=== PATIENT | female | born 1940 | race Hispanic/Latino ===

== ENCOUNTER → 2017-09-11 | Day surgery (SDC) | payer MEDICARE ==
[2017-09-07 10:09] LABS: BASOPHILS # (AUTO) 0.1 (0.0-0.1); BASOPHILS % 1.1 % (0.0-1.0); EOSINOPHILS # (AUTO) 0.2 (0.0-0.4); EOSINOPHILS % 2.7 % (0.0-6.0); HEMATOCRIT 38.9 % (34.2-44.1); HEMOGLOBIN 12.3 g/dL (12.0-16.0); LYMPHOCYTES # (AUTO) 1.9 (1.0-3.2); LYMPHOCYTES % 28.3 % (18.0-39.1); MEAN CORPUSCULAR HEMOGLOBIN 28.2 pg (28-32); MEAN CORPUSCULAR HGB CONC 31.6 g/dL (31-35); MEAN CORPUSCULAR VOLUME 89.2 fL (81-99); MONOCYTES # (AUTO) 0.6 (0.2-0.8); MONOCYTES % 8.9 % (4.4-11.3); NEUTROPHILS # (AUTO) 3.9 (2.1-6.9); NEUTROPHILS % 58.7 % (38.7-80.0); PLATELET COUNT 292 x10e3/uL (140-360); RED BLOOD COUNT 4.36 x10e6/uL (3.6-5.1); RED CELL DISTRIBUTION WIDTH 14.1 % (11.7-14.4)
[~2017-09-11] MED LIST: CEFUROXIME500 MG PO; ECHINACEA380 MG PO; FENTANYL CITRATE/PF 100MCG/2 ML INJ ONE; GABAPENTIN300 MG PO; GLUCAGON FOR INJ 1 MG VIAL ONE; IBUPROFEN200 M2 PO; LIDOCAINE HCL 2% LOCAL INJ 5 ML SDV VIAL INJ ONE; LOSARTAN POTASS25 MG PO; METFORMIN HCL500 M3 PO; MIDAZOLAM HCL 2 MG/2 ML VIAL ONE; NAPROXEN SODIUM PO; OMEPRAZOLE40 MG PO; PROPOFOL IV EMULSION 10 MG/ML 50 ML VIAL ONE; Z.0.LEXAPRO10 MG PO; Z.0.SEROQUEL300 MG; Z.0.SIMVASTATIN20 MG PO; [UNRECOGNIZED DRUG - OTHER] PO
[2017-09-11 12:12] LABS: WBC,FECAL (FECAL LACTOFERRIN) NEGATIVE (NEGATIVE)
[2017-09-11 14:17] LABS: C DIFFICILE TOXIN A&B AMP PROB NEGATIVE (NEGATIVE)
--- NOTE | 2017-09-11 14:58 | Operative Report ---
DATE OF PROCEDURE: September 11, 2017 REFERRING PHYSICIAN: Dr. Yahaira Harley PROCEDURES PERFORMED 1. Esophagogastroduodenoscopy with esophageal dilatation and biopsies. 2. Colonoscopy with polypectomy and biopsies. INDICATIONS FOR EGD: Dysphagia to solids. INDICATIONS FOR COLONOSCOPY: Colorectal cancer screening, History of diarrhea and family history of colon cancer. MEDICATION: The patient was done under MAC. Please see anesthesiologist's note. PROCEDURE: With the patient in the left lateral decubitus position, the flexible fiberoptic Olympus gastroscope was introduced into the esophagus under direct visualization without any difficulty. There was some scattered whitish plaques noted in the esophagus. Those were brushed and sent to stain for kassy. There was a mild stricture noted at the GE junction that was dilated to size 52-[place] Rust. The scope was then advanced with ease into the stomach, and the mucosa overlying the antrum and the body revealed some patchy erythema and mild to moderate edema, and biopsies were obtained and sent to stain for H. pylori. The pylorus was of normal contour and shape. It was intubated with ease. The scope was advanced all the way to the 2nd portion of the duodenum. The scope was then withdrawn slowly. There was a large diverticulum noted in the proximal 2nd portion. The mucosa overlying the duodenal bulb appeared to be within normal limits. The scope was then withdrawn back into the stomach. Retroflexion of the mucosa overlying the fundus and the cardia appeared to be within normal limits. The scope was then straightened out. The stomach was decompressed. The scope was subsequently withdrawn. The patient tolerated the procedure well. IMPRESSION 1. Rule out Kassy esophagitis. 2. Esophageal stricture at gastroesophageal junction dilated to size 52-[place] Rust. 3. Gastritis, biopsied. Biopsies sent to stain for Helicobacter. pylori. 4. Duodenal diverticulum. PLAN: Follow up histology. Initiate Protonix 40 mg 1 p.o. q.a.m. and a.c. The patient was then turned around. After adequate lubrication of the anal canal, a flexible fiberoptic Olympus colonoscope was inserted into the rectum with ease and advanced all the way to the cecum. Mucosa overlying the cecum appeared to be within normal limits. The ileocecal valve was intubated. The scope was advanced into the terminal ileum. Biopsies were obtained. The scope was then withdrawn back into the colon. It was then withdrawn slowly. Mucosa overlying the ascending and transverse grossly appeared to be within normal limits. There was some mild patchy inflammatory changes noted in the left colon. Multiple random biopsies were obtained. One polyp was hot biopsied from the sigmoid colon. Similar inflammatory findings were noted in the rectum and biopsies were obtained. The scope was then retroflexed into the distal rectum and internal hemorrhoids were noted, none of which was actively bleeding. The scope was then straightened out. The rectosigmoid area, as well as the distal rectal area were decompressed. The scope was subsequently withdrawn after securing an adequate stool specimen that was sent for the appropriate stool studies. The patient tolerated the procedure well. IMPRESSION 1. Patchy mild left colitis. 2. Colon polyp, hot biopsied. 3. Proctitis, mild. 4. Internal hemorrhoids, none actively bleeding. PLAN: Follow up histology. Follow up stool studies. Initiate Bentyl 10 mg 1 p.o. t.i.d.. The patient will need a followup colonoscopy in 3 years. Job#: [id number] RI cc:YAHAIRA HARLEY MD
== END | disposition home or self-care (01) ==
LOC: OR 06:13
PROVIDERS: ATTEND Internal Medicine Gastroenterology
DX: Z12.11 Encounter for screening for malignant neoplasm of colon (principal); K63.5 Polyp of colon; K29.70 Gastritis, unspecified, without bleeding; K22.2 Esophageal obstruction; K51.50 Left sided colitis without complications; K57.10 Diverticulosis of small intestine without perforation or abscess without bleeding; K21.9 Gastro-esophageal reflux disease without esophagitis; K62.89 Other specified diseases of anus and rectum; K64.8 Other hemorrhoids; G47.33 Obstructive sleep apnea (adult) (pediatric); E11.9 Type 2 diabetes mellitus without complications; N28.1 Cyst of kidney, acquired; Z01.810 Encounter for preprocedural cardiovascular examination; Z01.812 Encounter for preprocedural laboratory examination; Z68.28 Body mass index [BMI] 28.0-28.9, adult; Z80.0 Family history of malignant neoplasm of digestive organs
CPT/HCPCS: 36415 ×2; 43239; 43450; 45380; 45384; 82948; 83630; 83993; 85025; 87045; 87177; 87328; 87493; 93005; J1610; J2001; J2250; 43245; 45378

== ENCOUNTER → 2018-02-10 | Outpatient (CLI) | payer MEDICARE ==
[~2018-02-10] MED LIST changes: -FENTANYL CITRATE/PF 100MCG/2 ML INJ ONE; -GLUCAGON FOR INJ 1 MG VIAL ONE; -LIDOCAINE HCL 2% LOCAL INJ 5 ML SDV VIAL INJ ONE; -MIDAZOLAM HCL 2 MG/2 ML VIAL ONE; -PROPOFOL IV EMULSION 10 MG/ML 50 ML VIAL ONE
--- NOTE | 2018-02-10 10:11 | Diagnostic Imaging Report ---
PROCEDURE:US RETROPERITONEAL ( KIDNEY ). COMPARISON:CT abdomen and pelvis without contrast 05/11/2013. INDICATIONS:Cyst Of Kidney TECHNIQUE: Smith-scale and color sonographic images of the bilateral kidneys and bladder where obtained in transverse and longitudinal planes. FINDINGS: RIGHT KIDNEY: 10.1 cm in length, cortical thickness 1.4 cm. Cysts: Interpolar-lower pole round anechoic structure with posterior acoustic enhancement measuring 2.2 x 2.1 x 2.6 cm, marginally increased in size relative to comparison CT, at which time the lesion measured 2 x 2 by 1.7 cm. Solid masses: None Stones: None Hydronephrosis: None Echogenicity: Normal renal cortical echogenicity. LEFT KIDNEY: 12.5 cm in length, cortical thickness 1.4 cm. Cysts: None Solid masses: None Stones: None Hydronephrosis: None Echogenicity: Normal renal cortical echogenicity. Bladder: Unremarkable. Right and left ureteral jets are identified. CONCLUSION: Simple right renal cyst now measuring 2.6 cm in maximum dimension, marginally increased in size relative to CT abdomen and pelvis 05/11/2013. Dictated by: Merlin Ordoñez M.D. on 02/10/2018 at 10:12 Electronically approved by: Merlin Ordoñez M.D. on 02/10/2018 at 10:12
== END ==
LOC: US 08:37
PROVIDERS: ATTEND Urology
DX: N28.1 Cyst of kidney, acquired (principal)
CPT/HCPCS: 76770

== ENCOUNTER → 2018-04-02 | Emergency (ER) | payer MEDICARE ==
[~2018-04-02] VITALS: Ht 160 cm; Wt 81.6 kg
[~2018-04-02] MED LIST changes: +BACLOFEN10 MG PO; +DICYCLOMINE HCL10 MG PO; +KETOROLAC TROMETHAMINE 60 MG/2 ML VIAL IM ONE; +ZOFRAN ODT4 MG PO
--- OUTSIDE RECORDS SUMMARY | 2018-04-02 09:07 | XMS REPORT ---
Author Author Admin, [place] Organization [facility] Address Unknown Phone Unavailable Allergies, Adverse Reactions, Alerts Allergy Name Reaction Description Start Date Severity Status Provider SULFA Critical Active Michael Waller MD Conditions or Problems Problem Name Problem Code Onset Date Status Entry Date Provider Comment Standard Description Annotate INSOMNIA DISORDER, RECURRENT Active Michael Waller MD Insomnia, unspecified ANXIETY DISORDER, OTHER SPECIFIED Active Michael Waller MD Other anxiety states OBESITY 278.00 Active Michael Waller MD Obesity, unspecified ANXIETY DISORDER NOS 300.00 Active Michael Waller MD Anxiety state, unspecified Medication List Medication Instructions Start Date Stop Date Generic Name NDC Status Provider Patient Instruction NYSTATIN 899837 UNIT/ML MOUTH/THROAT SUSPENSION NYSTATIN 81298282966 Active Michael Waller MD Active PANTOPRAZOLE SODIUM 40 MG ORAL TABLET DELAYED RELEASE PANTOPRAZOLE SODIUM 64906616979 Active Michael Waller MD Active BELSOMRA 5 MG ORAL TABLET Take 1 tab By Mouth take at bedtime As Needed insomnia SUVOREXANT 76586573120 Active Michael Waller MD Active LEXAPRO 20 MG ORAL TABLET Take 1 tab By Mouth take at bedtime ESCITALOPRAM OXALATE 73637716690 Active Michael Waller MD Active VALIUM 2 MG ORAL TABLET Take 1 tab By Mouth q8 hours As Needed anxiety 01/25 VALIUM 2 MG ORAL TABLET 809821 DIAZEPAM Inactive AMBIEN 5 MG ORAL TABLET Take 1 tab By Mouth take at bedtime ZOLPIDEM TARTRATE 50274851423 No Longer Active Michael Waller MD Active VALIUM 2 MG ORAL TABLET Take 1 tab By Mouth q8 hours As Needed anxiety 01/25 DIAZEPAM 38001357361 No Longer Active Michael Waller MD Active Vital Signs Date Name Value Unit Range Description blood pressure, diastolic 69 mm[Hg] BP bosch blood pressure, systolic 119 mm[Hg] BP sys height E&M 63 [in_us] Bdy height pulse rate E&M 83 /min Heart rate weight E&M 179.40 [lb_av] Weight Measured blood pressure, diastolic 73 mm[Hg] BP bosch blood pressure, systolic 112 mm[Hg] BP sys height E&M 63 [in_us] Bdy height pulse rate E&M 78 /min Heart rate weight E&M 179 [lb_av] Weight Measured blood pressure, diastolic 68 mm[Hg] BP bosch blood pressure, systolic 106 mm[Hg] BP sys height E&M 63 [in_us] Bdy height pulse rate E&M 83 /min Heart rate weight E&M 176.40 [lb_av] Weight Measured blood pressure, diastolic 78 mm[Hg] BP bosch blood pressure, systolic 131 mm[Hg] BP sys height E&M 63 [in_us] Bdy height pulse rate E&M 74 /min Heart rate weight E&M 177.60 [lb_av] Weight Measured blood pressure, diastolic 71 mm[Hg] BP bosch blood pressure, systolic 111 mm[Hg] BP sys height E&M 63 [in_us] Bdy height pulse rate E&M 90 /min Heart rate weight E&M 172 [lb_av] Weight Measured blood pressure, diastolic 67 mm[Hg] BP bosch blood pressure, systolic 105 mm[Hg] BP sys height E&M 63 [in_us] Bdy height pulse rate E&M 69 /min Heart rate weight E&M 169 [lb_av] Weight Measured blood pressure, diastolic 73 mm[Hg] BP bosch blood pressure, systolic 110 mm[Hg] BP sys height E&M 63 [in_us] Bdy height pulse rate E&M 68 /min Heart rate weight E&M 163.80 [lb_av] Weight Measured blood pressure, diastolic 68 mm[Hg] BP bosch blood pressure, systolic 113 mm[Hg] BP sys height E&M 63 [in_us] Bdy height pulse rate E&M 81 /min Heart rate weight E&M 163 [lb_av] Weight Measured Encounters Date Encounter Provider Code Facility 10:08:05 CDT Est Patient Exp Problem - 85982 Michael Waller MD CPT -69537 [facility] 10:04:40 CDT Est Patient Detailed - 48047 Michael Waller MD CPT- 79717 [facility] 09:50:03 BRAKE ASSEMBLER Est Patient Exp Problem - 21464 Michael Waller MD CPT -85883 [facility] 10:03:30 BRAKE ASSEMBLER Est Patient Exp Problem - 76098 Michael Waller MD CPT -59176 [facility] 10:29:51 CDT Est Patient Exp Problem - 78590 Michael Waller MD CPT -48650 [facility] 11:01:15 CDT Est Patient Detailed - 63324 Michael Waller MD CPT- 95602 [facility] 10:38:17 CDT Est Patient Exp Problem - 70486 Michael Waller MD CPT -73524 [facility] 10:39:07 CDT Est Patient Exp Problem - 13000 Michael Waller MD CPT -47223 [facility] 11:05:18 CDT Est Patient Exp Problem - 02256 Michael Waller MD CPT -52471 [facility] 14:37:52 CDT Est Patient Exp Problem - 37265 Michael Waller MD CPT -53348 [facility] 09:35:06 CDT Est Patient Exp Problem - 35009 Michael Waller MD CPT -04918 [facility] 10:39:18 CDT Est Patient Exp Problem - 00112 Michael Waller MD CPT -97849 [facility] 10:16:05 CDT Est Patient Exp Problem - 58327 Michael Waller MD CPT -58887 [facility] 10:35:52 BRAKE ASSEMBLER Est Patient Exp Problem - 61165 Michael Waller MD CPT -48041 [facility] 12:31:20 CDT Est Patient Exp Problem - 22727 Michael Waller MD CPT -92360 [facility] 12:14:57 CDT Est Patient Exp Problem - 24830 Michael Waller MD CPT -94348 [facility] 09:35:08 CDT Est Patient Exp Problem - 21906 Michael Waller MD CPT -04585 [facility] 11:03:56 BRAKE ASSEMBLER Est Patient Exp Problem - 30824 Michael Waller MD CPT -01210 [facility] Procedures Code Procedure Name Date Entry Date Standard Description CPT-68522 Diagnostic evaluation with [facility] - 83164 13:47:35 BRAKE ASSEMBLER
--- OUTSIDE RECORDS SUMMARY | 2018-04-02 09:07 | XMS REPORT ---
Author [facility] Address Unknown Phone Unavailable Care Team Providers Care Scrap Stripper Hand Name Role Phone ALEIDA SETH Unavailable Unavailable MORE MELÉNDEZ Unavailable Unavailable JUDD BARRETT Unavailable Unavailable Problems This patient has no known problems. Allergies, Adverse Reactions, Alerts This patient has no known allergies or adverse reactions. Medications This patient has no known medications. Results Test Description Test Time Test Comments Text Results Atomic Results Result Comments US RENAL RETROPERITONEAL COMP [place] [address] Patient Name: DUSTIN ALONSO MR #: [id number] : 1940 Age/Sex: 78/F Req #: [id number] Adm Physician: Ordered by: ALEIDA SETH MD Report #: [id number] Location: US Room/Bed: Procedure: [id number] US/US RENAL RETROPERITONEAL COMP Exam Date: Exam Time: REPORT STATUS: Signed PROCEDURE: US RETROPERITONEAL ( KIDNEY ). COMPARISON: CT abdomen and pelvis without contrast 05/11/2013. INDICATIONS: Cyst Of Kidney TECHNIQUE: Smith-scale and color sonographic images of the bilateral kidneys and bladder where obtained in transverse and longitudinal planes. FINDINGS: RIGHT KIDNEY : 10.1 cm in length, cortical thickness 1.4 cm. Cysts: Interpolar-lower pole round anechoic structure with posterior acoustic enhancement measuring 2.2 x 2.1 x 2.6 cm, marginally increased in size relative to comparison CT, at which time the lesion measured 2 x 2 by 1.7 cm. Solid masses: None Stones : None Hydronephrosis: None Echogenicity: Normal renal cortical echogenicity. LEFT KIDNEY: 12.5 cm in length, cortical thickness 1.4 cm. Cysts: None Solid masses: None Stones: None Hydronephrosis: None Echogenicity: Normal renal cortical echogenicity. Bladder: Unremarkable. Right and left ureteral jets are identified. CONCLUSION: Simple right renal cyst now measuring 2.6 cm in maximum dimension, marginally increased in size relative to CT abdomen and pelvis 05/11/2013. Dictated by: Vicenta Amado M.D. on 02/10/2018 at 10:12 Electronically approved by: Vicenta Amado M.D. on 02/10/2018 at 10:12 Dictated By : VICENTA AMADO MD 1012 Transcribed By: CYTNHIA on 02/10/18 1012 COPY TO: ALEIDA SETH MD MODIFIED BA. SWALLOW [place] [address] Patient Name: DUSTIN ALONSO MR #: [id number] : 1940 Age/Sex: 77/F Req #: [id number] Adm Physician: Ordered by: MORE MELÉNDEZ MD Report #: [id number] Location: DX Room/Bed: Procedure: [id number] DX/MODIFIED BA. SWALLOW Exam Date: 10/08/17 Exam Time: 1005 REPORT STATUS: Signed Modified Barium Swallow, October 08, 2017 Clinical history: Difficulty swallowing Comparison: None Technique : A modified barium swallow was performed in conjunction with speech pathology. Various viscosities of barium and barium-coated food items were administered under fluoroscopic observation. Fluoroscopy time: 2.6 min Cumulative air kerma: 16.10 mGy Findings: No evidence of laryngeal penetration or aspiration. Recurrent premature spillage into the vallecula. Small volume of residue throughout the hypopharynx. Impression: No evidence of penetration or aspiration. This report was generated with voice-recognition technology. Errors in cranberry bog supervisor can occur. Please interpret accordingly and contact a radiologist if there are any questions regarding the report. Signed by: Dr. Nikki Gomez M.D. on 10/08/2017 11: 26 AM Dictated By: NIKKI GOMEZ MD 112 Transcribed By: FAYE on 10/08/17 112 COPY TO: MORE MELÉNDEZ MD CHEST SINGLE (NOT PORTABLE) [place] [address] Patient Name: DUSTIN ALONSO MR #: [id number] : 1940 Age/Sex: 77/F Req #: [id number] Adm Physician: Ordered by: ALLA CHAO Report #: [id number] Location: ER Room/Bed: _ Procedure: [id number] DX/CHEST SINGLE (NOT PORTABLE) Exam Date: 09/28/17 Exam Time: 1710 REPORT STATUS: Signed PROCEDURE: A single AP view of the chest. COMPARISON: Chest radiograph and chest CT 01/23/2017. INDICATIONS: BODY ACHES, WEAK, SHORTNESS OF BREATH FINDINGS: Lines/tubes: None. Lungs: The lungs are well inflated and clear. There is no evidence of pneumonia or pulmonary edema. Pleura: There is no pleural effusion or pneumothorax. Heart and mediastinum: The heart and the mediastinum are unremarkable. Bones: No acute bony abnormality. IMPRESSION: No acute cardiopulmonary disease. Dictated by: Bird Swanson M.D. on 09/28/2017 at 17:32 Electronically approved by: Bird Swanson M.D. on 09/28/2017 at 17:32 Dictated By: BIRD SWANSON MD 173 Transcribed By: CYNTHIA on 09/28/17 1732 COPY TO: ALLA CHAO
[2018-04-02 09:46] LABS: BILIRUBIN,URINE NEGATIVE (NEGATIVE); CLARITY,URINE CLOUDY (CLEAR); COLOR,URINE YELLOW (YELLOW); KETONES,URINE NEGATIVE (NEGATIVE); LEUKOCYTE ESTERASE ,URINE 1+ (NEGATIVE); NITRITE,URINE NEGATIVE (NEGATIVE); PROTEIN,URINE DIPSTICK 2+ (NEGATIVE); URINE UROBILINOGEN 0.2 mg/dL (0.2 - 1)
[2018-04-02 09:59] LABS: BACTERIA,URINE MODERATE /HPF; EPITHELIAL CELLS,URINE FEW /LPF; RBC,URINE >50 /HPF (0-5)
[2018-04-02 10:30] LABS: BASOPHILS # (AUTO) 0.1 (0.0-0.1); BASOPHILS % 0.8 % (0.0-1.0); EOSINOPHILS # (AUTO) 0.3 (0.0-0.4); EOSINOPHILS % 3.4 % (0.0-6.0); HEMATOCRIT 37.9 % (34.2-44.1); HEMOGLOBIN 12.3 g/dL (12.0-16.0); LYMPHOCYTES # (AUTO) 1.3 (1.0-3.2); LYMPHOCYTES % 17.1 % (18.0-39.1); MEAN CORPUSCULAR HEMOGLOBIN 28.9 pg (28-32); MEAN CORPUSCULAR HGB CONC 32.5 g/dL (31-35); MEAN CORPUSCULAR VOLUME 89.2 fL (81-99); MONOCYTES # (AUTO) 0.6 (0.2-0.8); MONOCYTES % 7.6 % (4.4-11.3); NEUTROPHILS # (AUTO) 5.4 (2.1-6.9); NEUTROPHILS % 70.8 % (38.7-80.0); PLATELET COUNT 255 x10e3/uL (140-360); RED BLOOD COUNT 4.25 x10e6/uL (3.6-5.1); RED CELL DISTRIBUTION WIDTH 14.1 % (11.7-14.4)
[2018-04-02 10:44] LABS: ALANINE AMINOTRANSFERASE 16 IU/L (0-55); ALBUMIN 3.6 g/dL (3.5-5.0); ALBUMIN/GLOBULIN RATIO 1.1 (0.8-2.0); ALKALINE PHOSPHATASE 84 IU/L (40-150); ANION GAP 12.3 mmol/L (8-16); BLOOD UREA NITROGEN 14 mg/dL (7-26); BUN/CREATININE RATIO 19 (6-25); CALCIUM 9.1 mg/dL (8.4-10.2); CARBON DIOXIDE 27 mmol/L (22-29); CHLORIDE 104 mmol/L (98-107); CREATININE, SERUM 0.74 mg/dL (0.57-1.11); EST GLOMERULAR FILTRATION RATE > 60 ML/MIN (60-); GLUCOSE 129 mg/dL (74-118); POTASSIUM 4.3 mmol/L (3.5-5.1); SODIUM 139 mmol/L (136-145)
--- NOTE | 2018-04-02 11:09 | Diagnostic Imaging Report ---
EXAM: CT Abdomen and Pelvis WITHOUT contrast INDICATION: \S\kidney stone protocol COMPARISON: Abdominal CT 05/11/2013 TECHNIQUE: Abdomen and pelvis were scanned utilizing a multidetector helical scanner from the lung base to the pubic symphysis without administration of IV contrast. Absence of intravenous contrast decreases sensitivity for detection of focal lesions and vascular pathology. Coronal and sagittal reformations were obtained. Routine protocol was performed. IV CONTRAST: None ORAL CONTRAST: Water COMPLICATIONS: None RADIATION DOSE: Total DLP: 509.3 mGy*cm Estimated effective dose: (DLP x 0.015 x size factor) mSv CTDIvol has been reviewed. It is below the limits set by the Radiation Protocol Committee (RPC). FINDINGS: LINES and TUBES: None. LOWER THORAX: Unremarkable HEPATOBILIARY: No focal hepatic lesions. No biliary ductal dilation. GALLBLADDER: No radio-opaque stones or sludge. No wall thickening. SPLEEN: No splenomegaly. PANCREAS: No focal masses or ductal dilatation. ADRENALS: No adrenal nodules KIDNEYS/URETERS: No hydronephrosis. Fluid attenuating 2 cm lesion in the right kidney representing a cyst. No stones. GI TRACT: No abnormal distention, wall thickening, or evidence of bowel obstruction. Duodenal diverticulum along the second segment measuring approximately 2.9 cm. Appendix is not clearly identified. There is however no fat stranding or adenopathy in the right lower quadrant to suggest appendicitis. Diverticula of the sigmoid colon without evidence of diverticulitis. PELVIC ORGANS/BLADDER: Hysterectomy. No adnexal masses. Multiple phleboliths in the pelvis. LYMPH NODES: No lymphadenopathy. VESSELS: Atherosclerotic calcifications of the abdominal aorta and iliac arteries. PERITONEUM / RETROPERITONEUM: Trace free fluid in the pelvis. No free air. BONES: Degenerative changes of the spine, including severe facet hypertrophy at L4-L5 and L5-S1. SOFT TISSUES: Fat-containing umbilical hernia measuring approximately 2.1 x 2.5 cm without stranding to suggest strangulation. IMPRESSION: No urolithiasis. No noncontrast CT findings to explain abdominal pain. Trace free fluid in the pelvis, unexpected in a postmenopausal patient but otherwise nonspecific. Signed by: DR. Bird Fuentes MD on 04/02/2018 11:05 AM
[2018-04-02 11:43] VITALS: BP 111/76
== END | disposition home or self-care (01) ==
LOC: ER 09:03
DX: R30.0 Dysuria (principal); M54.5 Low back pain; N30.91 Cystitis, unspecified with hematuria; K57.31 Diverticulosis of large intestine without perforation or abscess with bleeding; E11.9 Type 2 diabetes mellitus without complications; E78.00 Pure hypercholesterolemia, unspecified; G62.9 Polyneuropathy, unspecified; F32.9 Major depressive disorder, single episode, unspecified
CPT/HCPCS: 99284; J1885

== ENCOUNTER → 2018-06-01 | Outpatient (CLI) | payer MEDICARE ==
[~2018-06-01] MED LIST changes: -KETOROLAC TROMETHAMINE 60 MG/2 ML VIAL IM ONE
[2018-06-01 11:58] LABS: BASOPHILS % 0.6 % (0.0-1.0); EOSINOPHILS # (AUTO) 0.2 (0.0-0.4); EOSINOPHILS % 2.7 % (0.0-6.0); HEMATOCRIT 40.1 % (34.2-44.1); HEMOGLOBIN 12.9 g/dL (12.0-16.0); LYMPHOCYTES # (AUTO) 1.9 (1.0-3.2); LYMPHOCYTES % 29.4 % (18.0-39.1); MEAN CORPUSCULAR HEMOGLOBIN 28.7 pg (28-32); MEAN CORPUSCULAR HGB CONC 32.2 g/dL (31-35); MEAN CORPUSCULAR VOLUME 89.3 fL (81-99); MONOCYTES # (AUTO) 0.6 (0.2-0.8); MONOCYTES % 8.8 % (4.4-11.3); NEUTROPHILS # (AUTO) 3.7 (2.1-6.9); NEUTROPHILS % 58.2 % (38.7-80.0); PLATELET COUNT 284 x10e3/uL (140-360); RED BLOOD COUNT 4.49 x10e6/uL (3.6-5.1); RED CELL DISTRIBUTION WIDTH 13.9 % (11.7-14.4)
== END ==
LOC: LAB 11:01
PROVIDERS: ATTEND Internal Medicine Gastroenterology
DX: K92.1 Melena (principal)
CPT/HCPCS: 36415; 85025

== ENCOUNTER → 2018-07-06 | Day surgery (SDC) | payer MEDICARE ==
[2018-07-05 12:19] LABS: BASOPHILS # (AUTO) 0.1 (0.0-0.1); BASOPHILS % 1.2 % (0.0-1.0); EOSINOPHILS # (AUTO) 0.2 (0.0-0.4); EOSINOPHILS % 3.4 % (0.0-6.0); HEMOGLOBIN 12.1 g/dL (12.0-16.0); LYMPHOCYTES # (AUTO) 2.4 (1.0-3.2); LYMPHOCYTES % 35.5 % (18.0-39.1); MEAN CORPUSCULAR HEMOGLOBIN 28.9 pg (28-32); MEAN CORPUSCULAR HGB CONC 31.8 g/dL (31-35); MEAN CORPUSCULAR VOLUME 90.9 fL (81-99); MONOCYTES # (AUTO) 0.7 (0.2-0.8); MONOCYTES % 10.9 % (4.4-11.3); NEUTROPHILS # (AUTO) 3.3 (2.1-6.9); NEUTROPHILS % 48.9 % (38.7-80.0); PLATELET COUNT 284 x10e3/uL (140-360); RED BLOOD COUNT 4.18 x10e6/uL (3.6-5.1); RED CELL DISTRIBUTION WIDTH 13.9 % (11.7-14.4)
[~2018-07-06] MED LIST changes: +PANTOPRAZOLE SO40 MG PO; +PROPOFOL IV EMULSION 10 MG/ML 50 ML VIAL ONE; +SUCRALFATE1 GM PO; +[UNRECOGNIZED DRUG - OTHER] PO
[2018-07-06 16:25] VITALS: BP 155/87
== END | disposition home or self-care (01) ==
LOC: OR 13:18
PROVIDERS: ATTEND Internal Medicine Gastroenterology
DX: K29.70 Gastritis, unspecified, without bleeding (principal); K31.7 Polyp of stomach and duodenum; K22.2 Esophageal obstruction; K20.9 Esophagitis, unspecified; K57.10 Diverticulosis of small intestine without perforation or abscess without bleeding; K21.9 Gastro-esophageal reflux disease without esophagitis; K44.9 Diaphragmatic hernia without obstruction or gangrene; G47.33 Obstructive sleep apnea (adult) (pediatric); E11.22 Type 2 diabetes mellitus with diabetic chronic kidney disease; I12.9 Hypertensive chronic kidney disease with stage 1 through stage 4 chronic kidney disease, or unspecified chronic kidney disease; N18.9 Chronic kidney disease, unspecified; Z88.6 Allergy status to analgesic agent; Z88.2 Allergy status to sulfonamides; Z88.8 Allergy status to other drugs, medicaments and biological substances; Z01.810 Encounter for preprocedural cardiovascular examination; Z01.812 Encounter for preprocedural laboratory examination; Z79.84 Long term (current) use of oral hypoglycemic drugs
CPT/HCPCS: 36415; 43239; 43450; 82948; 85025; 88305; 88312; 93005

== ENCOUNTER → 2019-02-27 | Outpatient (CLI) | payer MEDICARE ==
[~2019-02-27] MED LIST changes: -PROPOFOL IV EMULSION 10 MG/ML 50 ML VIAL ONE
--- NOTE | 2019-02-27 10:36 | Diagnostic Imaging Report ---
Renal ultrasound. History: Cyst of kidney Comparison: CT scan 04/02/2018. Findings: Transverse and longitudinal imaging of the kidneys and bladder. The kidneys are normal in echogenicity and size. 2.4 x 1.7 x 2.4 cm cyst in the mid medial right kidney. Possible prominent right renal pelvis. The right kidney measures 11.4 x 3.7 x 5.2 cm in length and the left kidney measures 9.8 x 4.0 x 4.8 cm in length. The right renal cortex measures 1.3 cm. The left renal cortex measures 1.3 cm. No bladder abnormalities identified. Bilateral ureteral jets are seen in the urinary bladder. Impression: 2.4 x 1.7 x 2.4 cm simple appearing cyst in the mid medial right kidney. Possible prominent right renal pelvis. Signed by: Dr. Regis Bolton M.D. on 02/27/2019 10:32 AM
== END ==
LOC: US 08:31
PROVIDERS: ATTEND Urology
DX: N28.1 Cyst of kidney, acquired (principal)
CPT/HCPCS: 76770

== ENCOUNTER 2019-07-01 07:30 | Emergency (ER) | payer MEDICARE ==
[~2019-07-01] VITALS: Ht 160 cm; Wt 81.6 kg
--- OUTSIDE RECORDS SUMMARY | 2019-07-01 07:34 | XMS REPORT ---
Author Author Admin, [place] Organization [facility] Address [address] [place] [address] Phone Allergies, Adverse Reactions, Alerts Allergy Name Reaction [...] Name NDC Status Provider Patient Instruction NYSTATIN 521641 UNIT/ML MOUTH/THROAT SUSPENSION NYSTATIN 57031845049 Active Michael Waller MD Active PANTOPRAZOLE SODIUM 40 MG ORAL TABLET DELAYED RELEASE PANTOPRAZOLE SODIUM 01034435106 Active Michael Waller MD Active BELSOMRA 5 MG ORAL TABLET Take 1 tab By Mouth take at bedtime As Needed insomnia SUVOREXANT 08602243884 Active Daphney Cleveland MD Active LEXAPRO 20 MG ORAL TABLET Take 1 tab By Mouth take at bedtime ESCITALOPRAM OXALATE 86307977684 Active Michael Waller MD Active VALIUM 2 MG ORAL TABLET Take 1 tab By Mouth q8 hours As Needed anxiety VALIUM 2 MG ORAL TABLET 970350 DIAZEPAM Inactive AMBIEN 5 MG ORAL TABLET Take 1 tab By Mouth take at bedtime ZOLPIDEM TARTRATE 40886511309 No Longer Active Michael Waller MD Active VALIUM 2 MG ORAL TABLET Take 1 tab By Mouth q8 hours As Needed anxiety DIAZEPAM 10709954338 No Longer Active Michael Waller MD Active Vital Signs Date Name Value Unit Range Description blood pressure, diastolic 75 mm[Hg] BP bosch blood pressure, systolic 145 mm[Hg] BP sys height E&M 63 [in_us] Bdy height pulse rate E&M 92 /min Heart rate blood pressure, diastolic 63 mm[Hg] BP bosch blood pressure, systolic 110 mm[Hg] BP sys height E&M 63 [in_us] Bdy height pulse rate E&M 73 /min Heart rate weight E&M 183 [lb_av] Weight Measured blood pressure, diastolic 73 mm[Hg] BP bosch blood pressure, systolic 138 mm[Hg] BP sys height E&M 63 [in_us] Bdy height pulse rate E&M 83 /min Heart rate weight E&M 183.38 [lb_av] Weight Measured blood pressure, diastolic 76 mm[Hg] BP bosch blood pressure, systolic 135 mm[Hg] BP sys height E&M 63 [in_us] Bdy height pulse rate E&M 73 /min Heart rate weight E&M 182.13 [lb_av] Weight Measured blood pressure, diastolic 72 mm[Hg] BP bosch blood pressure, systolic 114 mm[Hg] BP sys height E&M 63 [in_us] Bdy height pulse rate E&M 80 /min Heart rate weight E&M 181.40 [lb_av] Weight Measured Encounters Date Encounter Provider Code Facility 09:29:28 CDT Est Patient Exp Problem - 16153 Michael Waller MD CPT-70870 [facility] 09:30:44 CDT Est Patient Exp Problem - 66018 Michael Waller MD CPT-01612 [facility] 09:25:23 UNSCRAMBLER Est Patient Exp Problem - 00802 Michael Waller MD CPT-76235 [facility] 10:32:36 UNSCRAMBLER Est Patient Exp Problem - 55917 Michael Waller MD CPT-80060 [facility] 11:54:15 CDT Est Patient Exp Problem - 75401 Michael Waller MD CPT-55591 [facility] 13:44:55 CDT Est Patient Exp Problem - 92467 Michael Waller MD CPT-68220 [facility] 10:08:05 CDT Est Patient Exp Problem - 78848 Michael Waller MD CPT-83080 [facility] 10:04:40 CDT Est Patient Detailed - 85761 Michael Waller MD CPT-83098 [facility] 09:50:03 UNSCRAMBLER Est Patient Exp Problem - 61722 Michael Waller MD CPT-76921 [facility] 10:03:30 UNSCRAMBLER Est Patient Exp Problem - 98065 Michael Waller MD CPT-84786 [facility] 10:29:51 CDT Est Patient Exp Problem - 68206 Michael Waller MD CPT-53731 [facility] 11:01:15 CDT Est Patient Detailed - 68092 Michael Waller MD CPT-42257 [facility] 10:38:17 CDT Est Patient Exp Problem - 61673 Michael Waller MD CPT-73530 [facility] 10:39:07 CDT Est Patient Exp Problem - 60632 Michael Waller MD CPT-44103 [facility] 11:05:18 CDT Est Patient Exp Problem - 11373 Michael Waller MD CPT-10095 [facility] 14:37:52 CDT Est Patient Exp Problem - 62288 Michael Waller MD CPT-35969 [facility] 09:35:06 CDT Est Patient Exp Problem - 73203 Michael Waller MD CPT-40667 [facility] 10:39:18 CDT Est Patient Exp Problem - 42018 Michael Waller MD CPT-78696 [facility] 10:16:05 CDT Est Patient Exp Problem - 49693 Michael Waller MD CPT-11363 [facility] 10:35:52 UNSCRAMBLER Est Patient Exp Problem - 73513 Michael Waller MD CPT-28308 [facility] 12:31:20 CDT Est Patient Exp Problem - 86948 Michael Waller MD CPT-80517 [facility] 12:14:57 CDT Est Patient Exp Problem - 92695 Michael Waller MD CPT-42696 [facility] 09:35:08 CDT Est Patient Exp Problem - 43165 Michael Waller MD CPT-19671 [facility] 11:03:56 UNSCRAMBLER Est Patient Exp Problem - 00381 Michael Waller MD CPT-78200 [facility] Procedures Code Procedure Name Date Entry Date Standard Description CPT-01133 Diagnostic evaluation with medical - 84619 13:47:35 UNSCRAMBLER
--- OUTSIDE RECORDS SUMMARY | 2019-07-01 07:34 | XMS REPORT | Encounter Summary ---
Author Organization Unknown Address [address] [place] [address] Phone [phone] Reason for Visit Medical Complaint Instructions 1. Influenza-like symptoms benzonatate 200 mg capsule rapid flu (A+B) 2. Type 2 diabetes mellitus learning about type 2 diabetes 3. Hypertensive disorder elevated blood pressure: care instructions 4. Hyperlipidemia high cholesterol: care instructions 5. Body mass index 30+ - obesity Discussion Note Pt is in NAD; Verbalizes understanding of all instructions with no questions at this time. Plan of Care Patient Instructions Take tylenol over the counter for pain/headache/fever as per pacakge insert. Take benzonatate for cough as directed. Take fluticasone as needed for congestion. [place] one spray in each nostril twice a day. Take a warm, steamy shower, blow your nose thereafter, and spray in each nostril. Tilt your head up for about 10 seconds and breath through your mouth. Do not sniff or snort the medication in or else the medication will go to your throat and not be absorbed appropriately. Take levocetirizine for allergy like symptoms like runny nose, sneezing and watery eyes. Take medications as prescribed and follow up with a PCP within 2-3 if symptoms worsen as discussed. Recommend monitor BP and blood sugars at home and document, bring BP and blood sugars log to PCP for review. Recommend follow a low sodium diet and exercise as tolerated once symptoms resolve. Reminders Provider Appointments None recorded. Lab Rapid Flu (A+B) 01/01/2018 [facility] Referral None recorded. Procedures None recorded. Surgeries None recorded. Imaging None recorded. Medications Name Start Date baclofen 10 mg tablet TAKE ONE (1) TABLET(S) BY MOUTH THREE TIMES A DAY NEEDED FOR SPASMS. benzonatate 200 mg capsule Take 1 capsule 3 times a day by oral route as needed for cough. dicyclomine hcl 10 mg caps escitalopram 20 mg tablet TAKE ONE (1) TABLET(S) BY MOUTH AT BEDTIME. gabapentin 300 mg capsule TAKE ONE (1) CAPSULE(S) BY MOUTH THREE TIMES A DAY FOR 90 DAYS. losartan 25 mg tablet TAKE ONE (1) TABLET(S) BY MOUTH ONCE A DAY. metformin 500 mg tablet TAKE ONE (1) TABLET(S) BY MOUTH TWICE A DAY. simvastatin 20 mg tablet TAKE ONE (1) TABLET(S) BY MOUTH EVERY NIGHT AT BEDTIME. Medications Administered None recorded. Vitals Height Weight BMI Blood Pressure 5 ft 3 in 174 lbs 30.8 kg/m2 118/74 mm[Hg] Lab Results Date Name Specimen Result Interpretation Description Value Range Status Address Rapid Flu (A+B) Influenza a negative [facility]: [address] [place] [address] Influenza B negative [facility]: [address] [place] [address] Allergies Code Code System Name Reaction Severity Status Onset Sulfa (Sulfonamide Antibiotics) Other Severe Active Problems Name Status Onset Date Source Body Mass Index 30+ - Obesity Active 01/01/2018 Influenza-like Symptoms Active 01/01/2018 Type 2 Diabetes Mellitus Active Diabetic Neuropathy Active Hyperlipidemia Active Hypertensive Disorder Active Panic Disorder Active Procedures Date Name Performed by Knee Arthroscopy/surgery Information not available Hysterectomy Information not available Vaccine List Vaccine Type Tdap 05/21/2010 Social History Smoking Status Never Smoker Past Encounters 01/01/2018 Influenza-like Symptoms; Type 2 Diabetes Mellitus; Hypertensive Disorder; Hyperlipidemia; Body Mass Index 30+ - Obesity Vanessa Ji, [facility]: [address] [place] [address], Ph. History of Present Illness Nydvzqj-Awykm-Szf Reported By: Patient HPI: Quality: symptoms worse during the day. Duration: 2 days. Severity: subjective temperature. Context: no ill contacts, no tick/insect bites, no recent travel, no new medications; Pt has h/o HTN, HLD, and type II DM managed by her PCP. Associated Symptoms: no headache, no muscle aches, no rash, no lethargy, fever/chills, cough, nasal passage blockage (stuffiness), nasal discharge; post nasal drip. Modifying Factors nothing gives relief Review of Systems:ROS as noted in the HPI Review of Systems Basic Reported By: Patient Physical Exam Adult Basic, Adult Female Complete Reported By: Patient Constitutional: General Appearance: obese. Level of Distress: NAD. Ambulation: ambulating normally Psychiatric: Mental Status: active and alert. Orientation: to time, to place, to person Bya-Onye-Hqvbt-Throat: Ears: no lesions on external ear, no outer ear tenderness, EACs clear, TMs clear. Hearing: no hearing loss. Nose: no lesions on external nose, nares patent, no septal deviation, nasal passages clear, no sinus tenderness, post nasal drip. Lips, Teeth, and Gums: no mouth or lip ulcers, no bleeding gums, normal dentition. Oropharynx: moist mucous membranes, no erythema, no exudates, tonsils not enlarged Neck: Lymph Nodes: no cervical LAD Lungs: Respiratory effort: no dyspnea, no tachypnea, no use of accessory muscles, no intercostal retractions. Auscultation: breath sounds normal Cardiovascular: Heart Auscultation: RRR, no murmurs Neurologic: Gait and Station: normal gait, normal station
--- OUTSIDE RECORDS SUMMARY | 2019-07-01 07:34 | XMS REPORT | Encounter Summary ---
Author Organization Unknown Address [address] [place] [address] Phone [phone] Reason for Visit Medical Complaint Instructions 1. Diarrhea diarrhea: care instructions Discussion Note Pt is in NAD; Verbalizes understanding of all instructions with no questions at this time. Plan of Care Patient Instructions Stay hydrated with gatorade or pedialyte. Eat a liquid diet for the first four hours. Stay away from dairy, fried and spicy foods until symptoms resolve. If you do experience improvement in your symptoms within the next four hours, advance yourself to a carbohydrate-rich diet such as white rice, white bread, and crackers. Within the next four hours thereafter, you can advance to lean meats such as chicken, fish, and turkey. Four hours thereafter if symptoms do improve, then advance to a regular diet. Take over the counter Imodium for diarrhea as per package insert. Follow up with your PCP and your GI specialist within 2-3 should symptoms worsen or no improvement as discussed. In case of emergency call 911 or worsening symptoms go to nearest ER Reminders Provider Appointments None recorded. Lab None recorded. Referral None recorded. Procedures None recorded. Surgeries None recorded. Imaging None recorded. Medications Name Start Date apap/codeine tab 300-60mg benzonatate 200 mg capsule Take 1 capsule 3 times a day by oral route as needed for cough. escitalopram oxalate 20 mg tabs gabapentin 300 mg capsule TAKE ONE (1) CAPSULE(S) BY MOUTH TWICE A DAY. losartan 25 mg tablet TAKE ONE (1) TABLET(S) BY MOUTH DAILY. metformin 500 mg tablet TAKE ONE (1) TABLET(S) BY MOUTH TWICE A DAY. metformin hcl 500 mg tabs pantoprazole sodium 40 mg tbec simvastatin 20 mg tablet TAKE ONE (1) TABLET(S) BY MOUTH AT BEDTIME. simvastatin 20 mg tabs Medications Administered None recorded. Vitals Height Weight BMI Blood Pressure 5 ft 3 in 160 lbs 28.3 120/76 Lab Results None recorded. Allergies Code Code System Name Reaction Severity Onset Sulfa (Sulfonamide Antibiotics) Other Severe Problems Name Status Onset Date Source Acute Upper Respiratory Infection Active Encounter Open Wound of Foot, Excluding Toe(s) Active Encounter Procedures Date Name Performed by Knee Arthroscopy/surgery Information not available Hysterectomy Information not available Vaccine List Vaccine Type Tdap 05/21/2010 Social History Smoking Status Never Smoker Past Encounters 02/26/2017 Diarrhea Vanessa Ji, [employer]-C: [address] [facility], [place] [address], Ph. History of Present Illness Gqbupz-Sqzpyfae-Ykzjeriy / Abdominal Pain Reported By: Patient HPI: Quality: watery, intermittent. Severity: moderate. Duration: present for 1 month. Onset/Timing: worse with meals, gradual onset. Context: no one else with similar symptoms, no recent camping, no recent picnic, no possible food sources, no recent travel. Alleviating factors: Imodium. Aggravating factors: eating. Associated Symptoms: no abdominal pain, no excess gas, no fever/chills, no rash, no joint pain, no weight loss, no nausea, no vomiting, no heartburn, no blood in stool, no mucus in stool, no black or tarry stools, no weakness, no nutrient deficiency, no headache, no feeling of fullness/mass in throat, no muscle aches, no bitter taste in the mouth, no difficulty swallowing (dysphagia); c/o intermittent watery diarrhea X 1 month Review of Systems:ROS as noted in the HPI Review of Systems Basic Reported By: Patient Physical Exam Adult Basic, Adult Female Complete Reported By: Patient Constitutional: General Appearance: healthy-appearing, well-nourished, well-developed. Level of Distress: NAD. Ambulation: limited ambulation, ambulation with walker Psychiatric: Mental Status: active and alert. Orientation: to time, to place, to person Eyes: Lids and Conjunctivae: non-injected Obz-Rfex-Nabhy-Throat: Ears: no lesions on external ear, no outer ear tenderness, EACs clear, TMs clear. Nose: no lesions on external nose, nares patent, no septal deviation, nasal passages clear, no sinus tenderness, no nasal discharge. Lips, Teeth, and Gums: no mouth or lip ulcers, no bleeding gums, normal dentition. Oropharynx: moist mucous membranes, no erythema, no exudates, tonsils not enlarged Neck: Lymph Nodes: no cervical LAD. Thyroid: no enlargement, non-tender, no nodules Lungs: Respiratory effort: no dyspnea, no tachypnea, no use of accessory muscles, no intercostal retractions. Auscultation: breath sounds normal Cardiovascular: Heart Auscultation: RRR, no murmurs Neurologic: Gait and Station: irregular gait, wide-based; walks with walker. Cranial Nerves: grossly intact. Sensation: grossly intact. Coordination and Cerebellum: xaurfr-nl-hpou intact, no tremor Skin: Inspection and palpation: no rash, no lesions, no ulcer, no abnormal nevi, no induration, no nodules, good turgor, no jaundice. Nails: normal Abdomen: Bowel Sounds: normal. Inspection and Palpation: soft, non-distended, no tenderness, no guarding, no rebound tenderness, no masses, no CVA tenderness. Liver: non-tender, no hepatomegaly. Spleen: non-tender, no splenomegaly. Hernia: none palpable
--- OUTSIDE RECORDS SUMMARY | 2019-07-01 07:34 | XMS REPORT | Continuity of Care Document ---
Author Author Partender Address Unknown Phone Unavailable Care Team Providers Care [employer] Software Developer Name Role Phone [employer] Unavailable Unavailable Problems Problem Status Onset Date Classification Date Reported Comments Source Body Mass Index 30+ - Obesity 01/01/2018 Problem 01/01/2018 [facility] Influenza-like Symptoms 01/01/2018 Problem 01/01/2018 [facility] Influenza-like symptoms 01/01/2018 Diagnosis 01/01/2018 [facility] Type 2 diabetes mellitus 01/01/2018 Diagnosis 01/01/2018 [facility] Hypertensive disorder 01/01/2018 Diagnosis 01/01/2018 [facility] Body mass index 30+ - obesity 01/01/2018 Diagnosis 01/01/2018 [facility] Diarrhea 02/26/2017 Diagnosis 02/26/2017 [facility] Knee pain Resolved Problem 06/20/2017 JAMIE [facility] Pain in left foot Active Problem 06/13/2016 [facility] Primary osteoarthritis of left ankle Active Problem 06/13/2016 [facility] Type 2 Diabetes Mellitus Problem 01/01/2018 [facility] Diabetic Neuropathy Problem 01/01/2018 [facility] Hyperlipidemia Problem 01/01/2018 [facility] Hypertensive Disorder Problem 01/01/2018 [facility] Panic Disorder Problem 01/01/2018 [facility] Acute Upper Respiratory Infection Problem 02/26/2017 [facility] Open Wound of Foot, Excluding Toe Problem 02/26/2017 [facility] Medications Medication Details Route Status Patient Instructions Ordering Provider Order Date Source Baclofen 10 MG Oral Tablet baclofen 10 mg tablet TAKE ONE (1) TABLET(S) BY MOUTH THREE TIMES A DAY NEEDED FOR SPASMS. Active [facility] benzonatate 200 MG Oral Capsule benzonatate 200 mg capsule Take 1 capsule 3 times a day by oral route as needed for cough. Active [facility] dicyclomine hcl 10 mg caps dicyclomine hcl 10 mg caps Active [facility] Escitalopram 20 MG Oral Tablet escitalopram 20 mg tablet TAKE ONE (1) TABLET(S) BY MOUTH AT BEDTIME. Active [facility] gabapentin 300 MG Oral Capsule gabapentin 300 mg capsule TAKE ONE (1) CAPSULE(S) BY MOUTH THREE TIMES A DAY FOR 90 DAYS. Active [facility] Losartan Potassium 25 MG Oral Tablet losartan 25 mg tablet TAKE ONE (1) TABLET(S) BY MOUTH ONCE A DAY. Active [facility] Metformin hydrochloride 500 MG Oral Tablet metformin 500 mg tablet TAKE ONE (1) TABLET(S) BY MOUTH TWICE A DAY. Active [facility] Simvastatin 20 MG Oral Tablet simvastatin 20 mg tablet TAKE ONE (1) TABLET(S) BY MOUTH EVERY NIGHT AT BEDTIME. Active [facility] apap/codeine tab 300-60mg apap/codeine tab 300-60mg Active [facility] escitalopram oxalate 20 mg tabs escitalopram oxalate 20 mg tabs Active [facility] metformin hcl 500 mg tabs metformin hcl 500 mg tabs Active [facility] pantoprazole sodium 40 mg tbec pantoprazole sodium 40 mg tbec Active [facility] simvastatin 20 mg tabs simvastatin 20 mg tabs Active [facility] Allergies, Adverse Reactions, Alerts Substance Category Reaction Severity Reaction type Status Date Reported Comments Source Sulfa (Sulfonamide Antibiotics) Other Severe Allergy to substance 05/21/2010 [facility] contrast media (iodine-based)<sup>1</sup> Assertion LIPS BURN Mild Drug allergy Active Patient states lips burn with iodine injection. Had injection several years ago JAMIE York Immunizations Immunization Date Given Site Status Last Updated Comments Source Tdap 05/21/2010 completed [facility] Results Order Name Results Value Reference Range Date Interpretation Comments Source Influenza A negative 01/01/2018 [facility] Influenza B negative 01/01/2018 [facility] Pathology Reports No Data Provided for This Section Diagnostic Reports Report Value Date Source Spine lumbar wo contrast CT CT lumbar spine without contrast 06/17/2017 9:40 AM CDT Comparison: No prior exam. Technique: Axial images were obtained without contrast. Sagittal and coronal MPR images were also submitted. The DLP is 1180 mGy-cm. This exam was performed according to our department dose optimization protocol, which includes automated exposure control, adjustment of the mA and/or kV according to patient size and/or use of iterative reconstruction technique. Findings: Osteopenia is present. T12-L1 level is unremarkable. L1-L2 mild facet arthrosis is present, without central canal or foraminal stenosis. L2-L3 mild facet arthrosis. No central canal stenosis. Mild left foraminal stenosis due to disc bulge encroachment. L3-L4 moderate facet arthrosis with mild to moderate central canal stenosis along with the ligamenta flava redundancy and mild disc bulge. Mild bilateral foraminal stenosis is present. L4-L5 severe facet arthrosis is present with 2 mm anterolisthesis. Mild central canal and bilateral foraminal stenosis. L5-S1 severe bilateral facet arthrosis with 3 mm anterolisthesis. Moderate right and mild left foraminal stenosis. No central canal stenosis. Right renal 2.3 cm cyst is present. Mild abdominal aortic atherosclerotic calcifications. Mild sigmoid diverticulosis without diverticulitis. Impression: 1. Osteopenia. 2. L3-L4 elvj-rf-okvjrjyr central canal stenosis and mild bilateral foraminal stenosis. 3. L4-L5 and L5-S1 grade 1 degenerative anterolisthesis. Mild central canal stenosis and foraminal stenosis. L5-S1 moderate right foraminal stenosis noted. 06/17/2017 JAMIE York Consultation Notes No Data Provided for This Section Discharge Summaries No Data Provided for This Section History and Physicals No Data Provided for This Section Vital Signs Vital Sign Value Date Comments Source Diastolic (mm Hg) 74 01/01/2018 [facility] Height 63 01/01/2018 [facility] Systolic (mm Hg) 118 01/01/2018 [facility] Weight 174 01/01/2018 [facility] Diastolic (mm Hg) 76 02/26/2017 [facility] Height 63 02/26/2017 [facility] Systolic (mm Hg) 120 02/26/2017 [facility] Weight 160 02/26/2017 [facility] Encounters Location Location Details Encounter Type Encounter Number Reason For Visit Attending Provider ADM Date DC Date Status Source [facility] Unknown [id number] 05/26/2016 05/26/2016 [facility] [id number] 05/26/2016 05/26/2016 [facility] Unknown [id number] 05/26/2016 05/26/2016 [facility] Unknown [id number] 05/26/2016 05/26/2016 [facility] [id number] 05/26/2016 05/26/2016 [facility] Unknown [id number] 05/26/2016 05/26/2016 [facility] [id number] 05/26/2016 05/26/2016 [facility] Unknown [id number] 05/26/2016 05/26/2016 [facility] Unknown [id number] 05/26/2016 05/26/2016 [facility] [id number] denied by ins [id number] 06/01/2016 06/01/2016 [facility] [id number] denied by ins [id number] 06/01/2016 06/01/2016 [facility] [id number] denied by ins [id number] 06/01/2016 06/01/2016 [facility] [id number] denied by ins [id number] 06/01/2016 06/01/2016 [facility] Unknown [id number] 06/01/2016 06/01/2016 [facility] Unknown [id number] 06/01/2016 06/01/2016 [facility] Unknown [id number] 06/01/2016 06/01/2016 [facility] [id number] 06/01/2016 06/01/2016 [facility] Unknown [id number] 06/12/2016 06/12/2016 [facility] [place] - [facility] - [id number] Ji, [employer]-C: [address] [place] [address], Ph. [id number] Vanessa Ji 02/26/2017 [facility] Outpatient [id number] [facility] 06/08/2017 Active [facility] [id number] [facility] 06/17/2017 06/18/2017 [facility] [place] - [facility] - [id number] Ji TECHNOLOGY CONSULTANT-C: [address] [place] [address], Ph. [id number] Vanessa Ji 01/01/2018 [facility] Procedures Procedure Code Date Perfomer Comments Source Hernia repair [id number] [facility] Hysterectomy [id number] [facility] Knee replacement [id number] [facility] Knee Arthroscopy/surgery 67093 [facility] Hysterectomy [facility] Knee Arthroscopy/surgery [facility] Assessment and Plan No Data Provided for This Section Plan of Care No Data Provided for This Section Social History Social History Date Source Social History TypeResponse Smoking Status Never smoker; Exposure to Tobacco Smoke None; Cigarette Smoking Last 365 Days No; Reg Smoking Cessation Counseling No 06/08/2017 TAMMIE York Smoking Status Never Smoker 02/07/2015 [facility] Family History No Data Provided for This Section Advance Directives No Data Provided for This Section Functional Status No Data Provided for This Section
--- NOTE | 2019-07-01 07:37 | NUR ---
pt states she is suicidal and hearing a voice on her right shoulder talking into her ear. pt states twice she has wanted to harm herself. pt states she does see pyschitrist and takes lexapro and has sleep disturbances. pt aaox4. pt denies any plan. no visual hallucination and no homicidal idealations. pt placed in paper gown and all objects removed from room per protocol for pt safety. [facility] nurse notified of need for 1:1 sitter and called lamberto to notify her of pt. aware of pt. all protocols being followed per policy.
--- NOTE | 2019-07-01 08:00 | NUR ---
per nicolasa orantes rn, no sitter available to watch pt per protocol. nurse with pt in room.
[2019-07-01] MEDS ORDERED: SODIUM CHLORIDE 0.9% 1000ML 1,000 ML IV STA (08:02)
--- NOTE | 2019-07-01 08:12 | NUR ---
pt resting in bed. vss
--- NOTE | 2019-07-01 08:14 | NUR ---
rn and md in room with pt and spouse. pt now states she is absolutely not having suicidal idealations and no longer hearing any voices on her shoulder. md states 1:1 sitter no longer needed.
[2019-07-01 08:16] LABS: BASOPHILS % 0.6 % (0.0-1.0); EOSINOPHILS # (AUTO) 0.1 (0.0-0.4); EOSINOPHILS % 0.9 % (0.0-6.0); HEMATOCRIT 39.6 % (34.2-44.1); HEMOGLOBIN 12.5 g/dL (12.0-16.0); LYMPHOCYTES # (AUTO) 1.6 (1.0-3.2); LYMPHOCYTES % 23.8 % (18.0-39.1); MEAN CORPUSCULAR HEMOGLOBIN 27.4 pg (28-32); MEAN CORPUSCULAR HGB CONC 31.6 g/dL (31-35); MEAN CORPUSCULAR VOLUME 86.8 fL (81-99); MONOCYTES # (AUTO) 0.5 (0.2-0.8); NEUTROPHILS # (AUTO) 4.5 (2.1-6.9); NEUTROPHILS % 67.5 % (38.7-80.0); PLATELET COUNT 301 x10e3/uL (140-360); RED BLOOD COUNT 4.56 x10e6/uL (3.6-5.1); RED CELL DISTRIBUTION WIDTH 14.1 % (11.7-14.4)
[2019-07-01 08:22] LABS: BILIRUBIN,URINE NEGATIVE (NEGATIVE); CLARITY,URINE CLEAR (CLEAR); COLOR,URINE YELLOW (YELLOW); KETONES,URINE NEGATIVE (NEGATIVE); LEUKOCYTE ESTERASE ,URINE NEGATIVE (NEGATIVE); NITRITE,URINE NEGATIVE (NEGATIVE); PROTEIN,URINE DIPSTICK NEGATIVE (NEGATIVE); URINE UROBILINOGEN 0.2 mg/dL (0.2 - 1)
--- NOTE | 2019-07-01 08:24 | NUR ---
checked with pt again, pt continues to states she is not suicidal or homicidal and not hearing any voices.
[2019-07-01 08:26] LABS: AMPHETAMINES SCREEN,URINE NEGATIVE (NEGATIVE); BENZODIAZEPINES SCREEN,URINE POSITIVE (NEGATIVE); PHENCYCLIDINE SCREEN,URINE NEGATIVE (NEGATIVE)
[2019-07-01 08:27] LABS: INR 0.92; PROTHROMBIN TIME 12.9 seconds (11.9-14.5)
[2019-07-01 08:28] LABS: PARTIAL THROMBOPLASTIN TIME 31.6 seconds (23.8-35.5)
[2019-07-01] MEDS ORDERED: LORAZEPAM INJ 2 MG/ML VIAL IV NR (08:30)
[2019-07-01 08:36] LABS: ALANINE AMINOTRANSFERASE 13 IU/L (0-55); ALBUMIN 3.9 g/dL (3.5-5.0); ALBUMIN/GLOBULIN RATIO 1.3 (0.8-2.0); ALKALINE PHOSPHATASE 103 IU/L (40-150); ANION GAP 17.7 mmol/L (8-16); BLOOD UREA NITROGEN 11 mg/dL (7-26); BUN/CREATININE RATIO 15 (6-25); CALCIUM 9.5 mg/dL (8.4-10.2); CARBON DIOXIDE 22 mmol/L (22-29); CHLORIDE 105 mmol/L (98-107); CREATINE KINASE 117 IU/L (29-168); CREATININE, SERUM 0.71 mg/dL (0.57-1.11); EST GLOMERULAR FILTRATION RATE > 60 ML/MIN (60-); GLUCOSE 126 mg/dL (74-118); MAGNESIUM 1.9 MG/DL (1.3-2.1); POTASSIUM 3.7 mmol/L (3.5-5.1); SODIUM 141 mmol/L (136-145)
[2019-07-01 08:37] LABS: ACETAMINOPHEN < 3 ug/mL (10-30); SALICYLATE < 5.0 mg/dL (0-30)
[2019-07-01 08:38] LABS: BACTERIA,URINE FEW /HPF; EPITHELIAL CELLS,URINE RARE /LPF; RBC,URINE 0-5 /HPF (0-5); WBC,URINE (MAN) 0-5 /HPF (0-5)
[2019-07-01 08:56] LABS: THYROID STIMULATING HORMONE 0.954 uIU/mL (0.350-4.940)
--- NOTE | 2019-07-01 09:04 | Diagnostic Imaging Report ---
EXAMINATION: CHEST SINGLE (PORTABLE) INDICATION: Anxious, chest pain. COMPARISON: Chest radiograph 12/06/2009. FINDINGS: TUBES and LINES: None. LUNGS: Lungs are well inflated. Chronic appearing mild patchy opacity at the left lung base, likely atelectasis or scarring. No new consolidation or pulmonary edema. PLEURA: No pleural effusion or pneumothorax. HEART AND MEDIASTINUM: The cardiomediastinal silhouette is unremarkable. There are atherosclerotic calcifications within the aorta. BONES AND SOFT TISSUES: No acute osseous abnormality. UPPER ABDOMEN: No free air under the diaphragm. IMPRESSION: No acute radiographic abnormality. Signed by: Dr. Krishan Chandra MD on 07/01/2019 9:00 AM
--- NOTE | 2019-07-01 09:04 | Diagnostic Imaging Report ---
EXAMINATION: Head CT HISTORY: Anxiety, suicidal ideation, auditory hallucination, patient on [place] COMPARISON: None. TECHNIQUE: Multidetector axial images were obtained without contrast from the foramen magnum to the vertex . The images were reconstructed using brain and bone algorithms. Thin section brain images were reformatted into coronal and sagittal planes. Image quality: Motion/streaking artifact limits the evaluation of the skull base and posterior cranial fossa. Dose modulation, iterative reconstruction, and/or weight based adjustment of the mA/kV was utilized to reduce the radiation dose to as low as reasonably achievable. FINDINGS: Parenchyma: 1. Scattered muscular juxtacortical matter hypodensities, most likely age-related minimal chronic microvascular ischemic changes. 2. Small focal cortical and mostly subcortical hypodensity in the right inferior occipital lobe may be related to prior ischemia. 3. No mass or hemorrhage. No CT evidence of acute territorial cortical vascular insult. Extra-axial spaces:No abnormal density. No extra-axial fluid collections Brain volume: Mild generalized bulging of Ventricles: No hydrocephalus or displacement. Arteries: No density suggestive of thrombus. Dural sinuses: No abnormal density. Extra-axial spaces: No abnormal density. Foramen magnum: No mass, Chiari malformation, or basilar invagination. Sella: No obvious mass. Paranasal/mastoid sinuses: Imaged portions unremarkable. Skull/Scalp: No lytic or blastic lesions. No fractures. IMPRESSION: 1. No acute intracranial abnormalities, particularly no hemorrhage. 2. Mild chronic microvascular ischemic changes as detailed above. 3. Mild generalized brain volume loss. Signed by: Dr. Esperanza Steinberg M.D. on 07/01/2019 9:01 AM
[2019-07-01] MEDS ORDERED: LORAZEPAM 1 MG TAB PO ONE (09:30)
[2019-08-03] MEDS ORDERED: TELMISARTAN PO (08:56)
[2019-08-03] MEDS ORDERED: LORAZEPAM0.5 MG PO (08:56)
== END 2019-07-01 09:50 | disposition home or self-care (01) ==
LOC: ER 07:30
DX: F51.04 Psychophysiologic insomnia (principal); G47.33 Obstructive sleep apnea (adult) (pediatric); I10 Essential (primary) hypertension; E11.40 Type 2 diabetes mellitus with diabetic neuropathy, unspecified; Z79.84 Long term (current) use of oral hypoglycemic drugs; E78.5 Hyperlipidemia, unspecified; K21.9 Gastro-esophageal reflux disease without esophagitis
CPT/HCPCS: 36415; 70450; 71045; 80053; 80307; 80329 ×2; 81001; 82550; 82553; 83735; 84443; 84484; 85025; 85610; 85730; 87086; 93005; 99284; J2060; J7030

== ENCOUNTER 2019-07-03 18:14 | Emergency (ER) | payer MEDICARE ==
[~2019-07-03] VITALS: Ht 160 cm; Wt 81.6 kg
--- OUTSIDE RECORDS SUMMARY | 2019-07-03 18:22 | XMS REPORT | Continuity of Care Document ---
Author Author [facility] Review[facility] Address Unknown Phone Unavailable Care Team Providers Care Labor Delivery Rn Name Role Phone Pricebets Information [facility] Unavailable Unavailable Problems Problem Status Onset Date [...] Pain in left foot Active Problem 06/13/2016 [facility] Primary osteoarthritis of left ankle Active Problem 06/13/2016 [facility] Type 2 Diabetes Mellitus Problem [...] without diverticulitis. Impression: 1. Osteopenia. 2. L3-L4 [id number]-oa-[id number] central canal stenosis and mild bilateral foraminal [...] Provider ADM Date DC Date Status Source [facility] Unknown [id number] 05/26/2016 05/26/2016 [facility] [id number] 05/26/2016 05/26/2016 [facility] Unknown [id number] 05/26/2016 05/26/2016 [facility] Unknown [id number] 05/26/2016 05/26/2016 [facility] [id number] 05/26/2016 05/26/2016 [facility] [id number] 05/26/2016 05/26/2016 [facility] [id number] 05/26/2016 05/26/2016 [facility] Unknown [id number] 05/26/2016 05/26/2016 [facility] Unknown [id number] 05/26/2016 05/26/2016 [facility] [id number] denied by ins [id number] 06/01/2016 06/01/2016 [facility] L1970 denied by ins [id number] 06/01/2016 06/01/2016 [facility] L1970 denied by ins [id number] 06/01/2016 06/01/2016 [facility] L1970 denied by ins [id number] 06/01/2016 06/01/2016 [facility] Unknown [id number] 06/01/2016 06/01/2016 [facility] Unknown [id number] 06/01/2016 06/01/2016 [facility] Unknown [id number] 06/01/2016 06/01/2016 [facility] [id number] 06/01/2016 06/01/2016 [facility] [id number] 06/12/2016 06/12/2016 [facility] [place] - [facility] - [id number] Ji, STAFF COUNSELOR-C: [address] [place] [address], Ph. [id number] Vanessa Ji 02/26/2017 [facility] [id number] [facility] 06/08/2017 Active [facility] [place] [facility] [id number] [facility] 06/17/2017 06/18/2017 [facility] [place] - [facility] - [id number] Ji STAFF COUNSELOR-C: [address] [place] [address], Ph. [id number] Vanessa Ji 01/01/2018 [facility] Procedures Procedure Code Date Perfomer Comments Source Hernia repair [id number] [facility] [place] Hysterectomy [id number] [facility] [place] Knee replacement [id number] [facility] [place] Knee Arthroscopy/surgery 72170 [facility] Hysterectomy [facility] Knee Arthroscopy/surgery [facility] Assessment [...]
--- OUTSIDE RECORDS SUMMARY | 2019-07-03 18:23 | XMS REPORT ---
Author Author Admin, [place] Organization [facility] Address [address] [address] Phone Allergies, Adverse Reactions, Alerts Allergy Name [...] Name NDC Status Provider Patient Instruction NYSTATIN 336221 UNIT/ML MOUTH/THROAT SUSPENSION NYSTATIN [id number] Active Michael Waller MD Active PANTOPRAZOLE SODIUM 40 MG ORAL TABLET DELAYED RELEASE PANTOPRAZOLE SODIUM 08729943653 Active Michael Waller MD Active ATIVAN 0.5 MG ORAL TABLET Take 1/2 to 1 tab By Mouth take at bedtime LORAZEPAM 99403677432 Active Michael Waller MD Active LEXAPRO 20 MG ORAL TABLET Take 1 tab By Mouth take at bedtime ESCITALOPRAM OXALATE 33480127525 Active Michael Waller MD Active VALIUM 2 MG ORAL TABLET Take 1 tab By Mouth q8 hours As Needed anxiety VALIUM 2 MG ORAL TABLET 380391 DIAZEPAM Inactive AMBIEN 5 MG ORAL TABLET Take 1 tab By Mouth take at bedtime ZOLPIDEM TARTRATE 79180501697 No Longer Active Michael Waller MD Active BELSOMRA 5 MG ORAL TABLET Take 1 tab By Mouth take at bedtime As Needed insomnia SUVOREXANT 21806088499 No Longer Active Daphney Cleveland MD Active VALIUM 2 MG ORAL TABLET Take 1 tab By Mouth q8 hours As Needed anxiety DIAZEPAM 39026602319 No Longer Active Michael Waller MD Active Vital Signs Date Name Value Unit Range Description blood pressure, diastolic 65 mm[Hg] BP bosch blood pressure, systolic 140 mm[Hg] BP sys height E&M 63 [in_us] Bdy height pulse rate E&M 86 /min Heart rate weight E&M 173.13 [lb_av] Weight Measured blood pressure, diastolic 75 mm[Hg] BP bosch [...] Measured Encounters Date Encounter Provider Code Facility 11:09:46 CDT Est Patient Detailed - 40861 Michael Waller MD CPT-81107 [facility] 09:29:28 CDT Est Patient Exp Problem - 00780 Michael Waller MD CPT-89190 [facility] 09:30:44 CDT Est Patient Exp Problem - 97626 Michael Waller MD CPT-57042 [facility] 09:25:23 SHANK TAPPER Est Patient Exp Problem - 69961 Michael Waller MD CPT-29423 [facility] 10:32:36 SHANK TAPPER Est Patient Exp Problem - 66410 Michael Waller MD CPT-03813 [facility] 11:54:15 CDT Est Patient Exp Problem - 80923 Michael Waller MD CPT-62490 [facility] 13:44:55 CDT Est Patient Exp Problem - 34263 Michael Waller MD CPT-29568 [facility] 10:08:05 CDT Est Patient Exp Problem - 10431 Michael Waller MD CPT-63666 [facility] 10:04:40 CDT Est Patient Detailed - 13543 Michael Waller MD CPT-95117 [facility] 09:50:03 SHANK TAPPER Est Patient Exp Problem - 91962 Michael Waller MD CPT-07017 [facility] 10:03:30 SHANK TAPPER Est Patient Exp Problem - 52140 Michael Waller MD CPT-86847 [facility] 10:29:51 CDT Est Patient Exp Problem - 73734 Michael Waller MD CPT-57257 [facility] 11:01:15 CDT Est Patient Detailed - 85763 Michael Waller MD CPT-88347 [facility] 10:38:17 CDT Est Patient Exp Problem - 12759 Michael Waller MD CPT-19687 [facility] 10:39:07 CDT Est Patient Exp Problem - 13695 Michael Waller MD CPT-50055 [facility] 11:05:18 CDT Est Patient Exp Problem - 49277 Michael Waller MD CPT-87518 [facility] 14:37:52 CDT Est Patient Exp Problem - 13744 Michael Waller MD CPT-70324 [facility] 09:35:06 CDT Est Patient Exp Problem - 23862 Michael Waller MD CPT-73969 [facility] 10:39:18 CDT Est Patient Exp Problem - 88218 Michael Waller MD CPT-23049 [facility] 10:16:05 CDT Est Patient Exp Problem - 91477 Michael Waller MD CPT-71594 [facility] 10:35:52 SHANK TAPPER Est Patient Exp Problem - 68473 Michael Waller MD CPT-18045 [facility] 12:31:20 CDT Est Patient Exp Problem - 73686 Michael Waller MD CPT-50687 [facility] 12:14:57 CDT Est Patient Exp Problem - 15921 Michael Waller MD CPT-04237 [facility] 09:35:08 CDT Est Patient Exp Problem - 75106 Michael Waller MD CPT-06621 [facility] 11:03:56 SHANK TAPPER Est Patient Exp Problem - 09406 Michael Waller MD CPT-38848 [facility] Procedures Code Procedure Name Date Entry Date Standard Description CPT-03713 Diagnostic evaluation with [facility] - 04829 13:47:35 SHANK TAPPER
[2019-07-03 18:57] VITALS: BP 126/72
[2019-08-03] MEDS ORDERED: LORAZEPAM0.5 MG PO (08:56)
[2019-08-03] MEDS ORDERED: TELMISARTAN PO (08:56)
== END 2019-07-03 18:58 | disposition home or self-care (01) ==
LOC: ER 18:14
DX: L03.114 Cellulitis of left upper limb (principal); M79.632 Pain in left forearm; E78.5 Hyperlipidemia, unspecified; K21.9 Gastro-esophageal reflux disease without esophagitis; F41.9 Anxiety disorder, unspecified; F32.9 Major depressive disorder, single episode, unspecified
CPT/HCPCS: 99282

== ENCOUNTER → 2019-07-20 | Outpatient (CLI) | payer MEDICARE ==
[~2019-07-20] MED LIST changes: +LORAZEPAM0.5 MG PO; +TELMISARTAN PO
--- NOTE | 2019-07-20 11:23 | Diagnostic Imaging Report ---
EXAM: CT Abdomen and Pelvis WITHOUT intravenous contrast INDICATION: Hematuria, flank pain COMPARISON: None. TECHNIQUE: Abdomen and pelvis were scanned utilizing a multidetector helical scanner from the lung base to the pubic symphysis without administration of IV contrast. Coronal and sagittal reformations were obtained. IV CONTRAST: None ORAL CONTRAST: Water COMPLICATIONS: None RADIATION DOSE: Total DLP: 640.96 mGy*cm Dose modulation, iterative reconstruction, and/or weight based adjustment of the mA/kV was utilized to reduce the radiation dose to as low as reasonably achievable. FINDINGS: LOWER THORAX: No focal consolidation or suspicious nodules. Scattered coronary artery atherosclerotic calcifications. HEPATOBILIARY: No focal hepatic lesions. The gallbladder appears unremarkable. SPLEEN: No splenomegaly. PANCREAS: No focal masses or ductal dilatation. ADRENALS: No adrenal nodules. KIDNEYS/URETERS: 2 mm nonobstructive right lower pole renal calculus. No left renal calculi. No hydronephrosis or hydroureter. Right lower pole renal cyst measures up to 2.2 cm. Evaluation of the distal ureter and ureterovesical junction is obscured by streak artifact relating to right total hip prosthesis. PELVIC ORGANS/BLADDER: Unremarkable. PERITONEUM / RETROPERITONEUM: No free air or fluid. LYMPH NODES: No lymphadenopathy. VESSELS: Atherosclerotic calcifications of the nonaneurysmal abdominal aorta and major branches. GI TRACT: Sigmoid diverticulosis. No CT evidence of diverticulitis. No abnormal bowel wall thickening. No bowel obstruction. Normal appendix. BONES AND SOFT TISSUES: Status post right total hip replacement. No acute osseous injury. No suspicious lytic or blastic lesions. Mild degenerative changes of the lower lumbar spine. IMPRESSION: 2 mm nonobstructive right lower pole renal calculus. No left renal calculi. No hydronephrosis or hydroureter. Atherosclerotic calcifications including of the coronary arteries. Signed by: Marielena Montgomery MD on 07/20/2019 11:20 AM
== END ==
LOC: CT 10:29
PROVIDERS: ATTEND Urology
DX: R31.0 Gross hematuria (principal)
CPT/HCPCS: 74176

== ENCOUNTER 2019-07-22 10:50 | Emergency (ER) | payer MEDICARE ==
[~2019-07-22] VITALS: Ht 160 cm; Wt 81.6 kg
[~2019-07-22 10:50] MED LIST changes: -LORAZEPAM0.5 MG PO; -TELMISARTAN PO
--- OUTSIDE RECORDS SUMMARY | 2019-07-22 10:54 | XMS REPORT ---
Author Author Admin, [place] Organization [facility] Address [address] [place] [address] Phone ;[phone] Allergies, Adverse Reactions, Alerts Allergy Name Reaction [...] Name NDC Status Provider Patient Instruction NYSTATIN 119623 UNIT/ML MOUTH/THROAT SUSPENSION NYSTATIN [id number] Active Michael Waller MD Active PANTOPRAZOLE SODIUM 40 MG ORAL TABLET DELAYED RELEASE PANTOPRAZOLE SODIUM 23388123079 Active Michael Waller MD Active ATIVAN 0.5 MG ORAL TABLET Take 1/2 to 1 tab By Mouth take at bedtime LORAZEPAM 82685811157 Active Michael Waller MD Active LEXAPRO 20 MG ORAL TABLET Take 1 tab By Mouth take at bedtime ESCITALOPRAM OXALATE 60949883608 Active Michael Waller MD Active VALIUM 2 MG ORAL TABLET Take 1 tab By Mouth q8 hours As Needed anxiety VALIUM 2 MG ORAL TABLET 364704 DIAZEPAM Inactive AMBIEN 5 MG ORAL TABLET Take 1 tab By Mouth take at bedtime ZOLPIDEM TARTRATE 16582020631 No Longer Active Michael Waller MD Active BELSOMRA 5 MG ORAL TABLET Take 1 tab By Mouth take at bedtime As Needed insomnia SUVOREXANT 47083183274 No Longer Active Daphney Cleveland MD Active VALIUM 2 MG ORAL TABLET Take 1 tab By Mouth q8 hours As Needed anxiety DIAZEPAM 34182664308 No Longer Active Michael Waller MD Active [...] Facility 11:09:46 CDT Est Patient Detailed - 05383 Michael Waller MD CPT-36123 [facility] 09:29:28 CDT Est Patient Exp Problem - 26420 Michael Waller MD CPT-37311 [facility] 09:30:44 CDT Est Patient Exp Problem - 59913 Michael Waller MD CPT-11437 [facility] 09:25:23 ENGINE ROOM OPERATOR Est Patient Exp Problem - 50710 Michael Waller MD CPT-10760 [facility] 10:32:36 ENGINE ROOM OPERATOR Est Patient Exp Problem - 12320 Michael Waller MD CPT-46778 [facility] 11:54:15 CDT Est Patient Exp Problem - 08819 Michael Waller MD CPT-77195 [facility] 13:44:55 CDT Est Patient Exp Problem - 25085 Michael Waller MD CPT-15410 [facility] 10:08:05 CDT Est Patient Exp Problem - 09972 Michael Waller MD CPT-85306 [facility] 10:04:40 CDT Est Patient Detailed - 64533 Michael Waller MD CPT-02088 [facility] 09:50:03 ENGINE ROOM OPERATOR Est Patient Exp Problem - 20305 Michael Waller MD CPT-97142 [facility] 10:03:30 ENGINE ROOM OPERATOR Est Patient Exp Problem - 00396 Michael Waller MD CPT-34434 [facility] 10:29:51 CDT Est Patient Exp Problem - 56894 Michael Waller MD CPT-40578 [facility] 11:01:15 CDT Est Patient Detailed - 47642 Michael Waller MD CPT-34728 [facility] 10:38:17 CDT Est Patient Exp Problem - 32794 Michael Waller MD CPT-95990 [facility] 10:39:07 CDT Est Patient Exp Problem - 01768 Michael Waller MD CPT-20418 [facility] 11:05:18 CDT Est Patient Exp Problem - 53041 Michael Waller MD CPT-45330 [facility] 14:37:52 CDT Est Patient Exp Problem - 74773 Michael Waller MD CPT-72483 [facility] 09:35:06 CDT Est Patient Exp Problem - 65254 Michael Waller MD CPT-42764 [facility] 10:39:18 CDT Est Patient Exp Problem - 53688 Michael Waller MD CPT-91763 [facility] 10:16:05 CDT Est Patient Exp Problem - 34985 Michael Waller MD CPT-35244 [facility] 10:35:52 ENGINE ROOM OPERATOR Est Patient Exp Problem - 57604 Michael Waller MD CPT-16332 [facility] 12:31:20 CDT Est Patient Exp Problem - 31788 Michael Waller MD CPT-63805 [facility] 12:14:57 CDT Est Patient Exp Problem - 57812 Michael Waller MD CPT-71083 [facility] 09:35:08 CDT Est Patient Exp Problem - 52929 Michael Waller MD CPT-85160 [facility] 11:03:56 ENGINE ROOM OPERATOR Est Patient Exp Problem - 42125 Michael Waller MD CPT-97058 [facility] Procedures Code Procedure Name Date Entry Date Standard Description CPT-45090 Diagnostic evaluation with [facility] - 87318 13:47:35 ENGINE ROOM OPERATOR
--- OUTSIDE RECORDS SUMMARY | 2019-07-22 10:54 | XMS REPORT | Clinical Summary ---
Author Author [facility] Organization [facility] Address Unknown Phone Unavailable Care Team Providers Care Institutional Research Coordinator Name Role Phone Asked, No Pcp PCP Unavailable Allergies Not on File Medications Not on file Active Problems Not on file Encounters Care Team Description Date Type Specialty Devin Lynn MD Primary osteoarthritis of right hip (Primary Dx) 07/04/2019 Transcribe Physical Therapy Orders after 07/21/2018 Social History Date Tobacco Use Types Packs/Day Years Used Never Assessed Sex Assigned at Date Recorded Not on file Industry Job Start Date Occupation Not on file Not on file Not on file Travel End Travel History Travel Start No recent travel history available. Last Filed Vital Signs Not on file Plan of Treatment Care Team Description Date Type Specialty Devin Lynn MD [address] [place] [phone] Michael Vincent, PT 07/24/2019 Office Visit Physical Therapy Devin Lynn MD [address] [place] [phone] Joselin Rubio, SHIFT STACKER 07/26/2019 Office Visit Physical Therapy Devin Lynn MD [address] [place] [phone] Joselin Rubio, SHIFT STACKER 07/28/2019 Office Visit Physical Therapy Devin Lynn MD [address] [place] [phone] Michael Vincent, PT 07/31/2019 Office Visit Physical Therapy Devin Lynn MD [address] [place] [phone] Joselin Rubio, SHIFT STACKER 08/02/2019 Office Visit Physical Therapy Devin Lynn MD [address] [place] [phone] Michael Vnicent, PT 08/04/2019 Office Visit Physical Therapy Devin Lynn MD [address] [place] [phone] Michael Vincent, PT 08/07/2019 Office Visit Physical Therapy Devin Lynn MD [address] [place] [phone] Joselin Rubio, SHIFT STACKER 08/09/2019 Office Visit Physical Therapy Devin Lynn MD [address] [place] [phone] Michael Vincent, PT 08/11/2019 Office Visit Physical Therapy Devin Lynn MD [address] [place] [phone] Michael Vincent, PT 08/14/2019 Office Visit Physical Therapy Devin Lynn MD [address] [place] [phone] Joselin Rubio, SHIFT STACKER 08/16/2019 Office Visit Physical Therapy Health Maintenance Due Date Last Done Comments SHINGLES VACCINES (#1) 01/14/1991 65+ PNEUMOCOCCAL VACCINE 01/14/2006 (1 of 2 - PCV13) INFLUENZA VACCINE 06/08/2019 Results Not on fileafter 07/21/2018 Insurance Type Payer Benefit Subscriber ID Effective Phone Address Plan / Dates Group Exchange [employer] EXCHANGE HU[employer] PPO xxxxxxxxx 2019- EXCHANGE Present Advance Directives For more information, please contact: [phone] 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
--- OUTSIDE RECORDS SUMMARY | 2019-07-22 10:55 | XMS REPORT ---
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 Allergies, Adverse Reactions, Alerts Allergy Name Allergy Type Status Severity Reaction(s) Onset Date Inactive Date Treating Clinician Comments acetaminophen DA Active U 2016-12-02 00:00:00 tramadol DA Active SV 2016-12-02 00:00:00 Sulfa (Sulfonamide Antibiotics) DA Active SV 2016-06-18 00:00:00 codeine DA Active MA 2016-06-18 00:00:00 ibuprofen DA Active U 2016-06-18 00:00:00 Medications This patient has no known medications. Encounters Start Date/Time End Date/Time Encounter Type Admission Type Attending Clinicians Care Facility Care Department Encounter ID 2019-07-13 09:52:00 2019-07-13 09:52:00 Emergency E [id number] Results Test Description Test Time Test Comments Text Results Atomic Results Result Comments CT ABDOMEN/PELVIS WO 2019-07-20 11:14:[address] [address] Patient Name: DUSTIN ALONSO MR #: [id number] : 1940 Age/Sex: 79/F Req #: [id number] Adm Physician: Ordered by: ALEIDA SETH MD Report #: [id number] Location: CT Room/Bed: Procedure: [id number] CT/CT ABDOMEN/PELVIS WO Exam Date: 07/20/19 Exam Time: 1050 REPORT STATUS: Signed EXAM: CT Abdomen and Pelvis WITHOUT intravenous contrast INDICATION: Hematuria, flank pain COMPARISON: None. TECHNIQUE: Abdomen and pelvis were scanned utilizing a multidetector helical scanner from the lung base to the pubic symphysis without administration of IV contrast. Coronal and sagittal reformations were obtained. IV CONTRAST: None ORAL CONTRAST: Water COMPLICATIONS: None RADIATION DOSE: Total DLP: 640.96 mGy*cm Dose modulation, iterative reconstruction, and/or weight based adjustment of the mA/kV was utilized to reduce the radiation dose to as low as reasonably achievable. FINDINGS: LOWER THORAX: No focal consolidation or suspicious nodules. Scattered coronary artery atherosclerotic calcifications. HEPATOBILIARY: No focal hepatic lesions. The gallbladder appears unremarkable. SPLEEN: No splenomegaly. PANCREAS: No focal masses or ductal dilatation. ADRENALS: No adrenal nodules. KIDNEYS/URETERS: 2 mm nonobstructive right lower pole renal calculus. No left renal calculi. No hydronephrosis or hydroureter. Right lower pole renal cyst measures up to 2.2 cm. Evaluation of the distal ureter and ureterovesical junction is obscured by streak artifact relating to right total hip prosthesis. PELVIC ORGANS/BLADDER: Unremarkable. PERITONEUM / RETROPERITONEUM: No free air or fluid. LYMPH NODES: No lymphadenopathy. VESSELS: Atherosclerotic calcifications of the nonaneurysmal abdominal aorta and major branches. GI TRACT: Sigmoid diverticulosis. No CT evidence of diverticulitis. No abnormal bowel wall thickening. No bowel obstruction. N ormal appendix. BONES AND SOFT TISSUES: Status post right total hip replacement. No acute osseous injury. No suspicious lytic or blastic lesions. Mild degenerative changes of the lower lumbar spine. IMPRESSION: 2 mm nonobstructive right lower pole renal calculus. No left renal calculi. No hydronephrosis or hydroureter. Atherosclerotic calcifications including of the coronary arteries. Signed by: Lc Luong MD on 07/20/2019 11:20 AM Dictated By: LC LUONG MD 19 Transcribed By: FAYE on 07/20/19 1120 COPY TO: ALEIDA SETH MD CHEST SINGLE (PORTABLE) 2019-07-01 08:58:00 [place] [address] Patient Name: DUSTIN ALONSO MR #: [id number] : 1940 Age/Sex: 79/F Req #: [id number] Adm Physician: Ordered by: RODRIGUEZ RUBIO MD Report #: [id number] Location: ER Room/Bed: Procedure: [id number] DX/CHEST SINGLE (PORTABLE) Exam Date: 07/01/19 Exam Time: 0836 REPORT STATUS: Signed EXAMINATION: CHEST SINGLE (PORTABLE) INDICATION: Anxious, chest pain. COMPARISON: Chest radiograph 12/06/2009. FINDINGS: TUBES and LINES: None. LUNGS: Lungs are well inflated. Chronic appearing mild patchy opacity at the left lung base, likely atelectasis or scarring. No new consolidation or pulmonary edema. PLEURA: No pleural effusion or pneumothorax. HEART AND MEDIASTINUM: The cardiomediastinal silhouette is unremarkable. There are atherosclerotic calcifications within the aorta. BONES AND SOFT TISSUES: No acute osseous abnormality. UPPER ABDOMEN: No free air under the diaphragm. IMPRESSION: No acute radiographic abnormality. Signed by: Dr. Peter Freeman MD on 07/01/2019 9:00 AM Dictated By: PETER FREEMAN MD 9 Transcribed By: FAYE on 07/01/19899 COPY TO: RODRIGUEZ RUBIO MD CT BRAIN WO 2019-07-01 08:58:00 [place] [id number] [place] [address] Patient Name: DUSTIN AOLNSO MR #: [id number] : 1940 Age/Sex: 79/F Req #: [id number] Adm Physician: Ordered by: RODRIGUEZ RUBIO MD Report #: [id number] Location: ER Room/Bed: Procedure: [id number] CT/CT BRAIN WO Exam Date: 07/01/19 Exam Time: 824 REPORT STATUS: Signed EXAMINATION: Head CT HISTORY: Anxiety, suicidal ideation, auditory hallucination, patient on [place] COMPARISON: None. TECHNIQUE: Multidetector axial images were obtained without contrast from the foramen magnum to the vertex . The images were reconstructed using brain and bone algorithms. Thin section brain images were reformatted into coronal and sagittal planes. Image quality: Motion/streaking artifact limits the evaluation of the skull base and posterior cranial fossa. Dose modulation, iterative reconstruction, and/or weight based adjustment of the mA/kV was utilized to reduce the radiation dose to as low as reasonably achievable. FINDINGS: Parenchyma: 1. Scattered muscular juxtacortical matter hypodensities, most likely age-related minimal chronic microvascular ischemic changes. 2. Small focal cortical and mostly subcortical hypodensity in the right inferior occipital lobe may be related to prior ischemia. 3. No mass or hemorrhage. No CT evidence of acute territorial cortical vascular insult. Extra-axial spaces:No abnormal density. No extra-axial fluid collections Brain volume: Mild generalized bulging of Ventricles: No hydrocephalus or displacement. Arteries: No density suggestive of thrombus. Dural sinuses: No abnormal density. Extra-axial spaces: No abnormal density. Foramen magnum: No mass, Chiari malformation, or basilar invagination. Sella: No obvious mass. Paranasal/mastoid sinuses: Imaged portions unremarkable. Skull/Scalp: No lytic or blastic lesions. No fractures. IMPRESSION: 1. No acute intracranial abnormalities, particularly no hemorrhage. 2. Mild chronic microvascular ischemic changes as detailed above. 3. Mild generalized brain volume loss. Signed by: Dr. Michelle Steinberg M.D. on 07/01/2019 9:01 AM Dictated By: MICHELLE STEINBERG MD 0 Transcribed By: FAYE on 07/01/19900 COPY TO: RODRIGUEZ RUBIO MD GLUBED 2019-05-12 08:55:00 GLUBED (test code=GLUBED) 137 MG/DL 70-110 Performed by certified prefinish operator at [facility] BASIC METABOLIC [id number] 07:52:00* Test Item Value Reference Range Comments SODIUM (test code=NA) 139 mEq/L 134-147 POTASSIUM (test code=K) 4.5 mEq/L 3.4-5.0 CHLORIDE (test code=CL) 106 mEq/L 100-108 CARBON DIOXIDE (test code=CO2) 26 mEq/L 21-33 ANION GAP (test code=GAP) 12 0-20 GLUCOSE (test code=GLU) 156 mg/dL 70-110 BLOOD UREA NITROGEN (test code=BUN) 14 mg/dL 7-18 GLOMERULAR FILTRATION RATE (test code=GFR) 96.7 70-80 Units of measure=ml/min/1.73 m2 CREATININE (test code=CREAT) 0.6 mg/dL 0.6-1.3 CALCIUM (test code=CA) 7.7 mg/dL 8.0-10.5 [id number] 21:19:00* Test Item Value Reference Range Comments GLUBED (test code=GLUBED) 163 MG/DL 70-110 Performed by certified prefinish operator at [facility] [id number] 17:14:00* Test Item Value Reference Range Comments GLUBED (test code=GLUBED) 160 MG/DL 70-110 Performed by certified prefinish operator at [facility] [id number] 13:17:00* Test Item Value Reference Range Comments GLUBED (test code=GLUBED) 146 MG/DL 70-110 Performed by certified prefinish operator at [facility] CBC W/AUTO [id number] 09:02:00* Test Item Value Reference Range Comments WHITE BLOOD CELL (test code=WBC) 10.53 x10 3/uL 4.5-11.0 RED BLOOD CELL (test code=RBC) 3.29 x10 6/uL 3.54-5.02 HEMOGLOBIN (test code=HGB) 9.7 g/dL 11.0-15.0 HEMATOCRIT (test code=HCT) 31.2 % 33.0-45.0 MEAN CELL VOLUME (test code=MCV) 94.8 fL 81.0-99.0 MEAN CELL HGB (test code=MCH) 29.5 pg 27.0-33.0 MEAN CELL HGB CONCETRATION (test code=MCHC) 31.1 g/dL 33.0-37.0 RED CELL DISTRIBUTION WIDTH CV (test code=RDW) 15.0 % 11.5-14.5 RED CELL DISTRIBUTION WIDTH SD (test code=RDW-SD) 52.1 fL 37.0-54.0 PLATELET COUNT (test code=PLT) 219 x10 3/uL 150-400 MEAN PLATELET VOLUME (test code=MPV) 10.5 fL 7.0-9.0 NEUTROPHIL % (test code=NT%) 79.8 % 56.0-77.0 IMMATURE GRANULOCYTE % (test code=IG%) 0.5 % 0.0-2.0 LYMPHOCYTE % (test code=LY%) 8.9 % 14.0-32.0 MONOCYTE % (test code=MO%) 10.6 % 4.8-9.0 EOSINOPHIL % (test code=EO%) 0.0 % 0.3-3.7 BASOPHIL % (test code=BA%) 0.2 % 0.0-2.0 NUCLEATED RBC % (test code=NRBC%) 0.0 % 0-0 NEUTROPHIL # (test code=NT#) 8.40 x10 3/uL 2.0-7.6 IMMATURE GRANULOCYTE # (test code=IG#) 0.05 x10 3/uL 0.00-0.03 LYMPHOCYTE # (test code=LY#) 0.94 x10 3/uL 1.0-3.8 MONOCYTE # (test code=MO#) 1.12 x10 3/uL 0.1-0.8 EOSINOPHIL # (test code=EO#) 0.00 x10 3/uL 0.0-0.2 BASOPHIL # (test code=BA#) 0.02 x10 3/uL 0.0-0.2 NUCLEATED RBC # (test code=NRBC#) 0.00 x10 3/uL 0.0-0.1 MANUAL DIFF REQUIRED (test code=MDIFF) NO [id number] 08:51:00* Test Item Value Reference Range Comments GLUBED (test code=GLUBED) 135 MG/DL 70-110 Performed by certified prefinish operator at [facility] BASIC METABOLIC [id number] 07:54:00* Test Item Value Reference Range Comments SODIUM (test code=NA) 138 mEq/L 134-147 POTASSIUM (test code=K) 5.5 mEq/L 3.4-5.0 SPECIMEN 1+ HEMOLYZED.Results known to be adversely affected by hemolysis are: Potassium Magnesium LDH Phosphorus CHLORIDE (test code=CL) 106 mEq/L 100-108 CARBON DIOXIDE (test code=CO2) 22 mEq/L 21-33 ANION GAP (test code=GAP) 16 0-20 GLUCOSE (test code=GLU) 163 mg/dL 70-110 BLOOD UREA NITROGEN (test code=BUN) 21 mg/dL 7-18 GLOMERULAR FILTRATION RATE (test code=GFR) 53.6 70-80 Units of measure=ml/min/1.73 m2 CREATININE (test code=CREAT) 1.0 mg/dL 0.6-1.3 CALCIUM (test code=CA) 8.1 mg/dL 8.0-10.5 [id number] 07:54:00* Test Item Value Reference Range Comments PHOSPHOROUS (test code=PHOS) 4.3 mg/dL 2.5-4.9 [id number] 07:54:00* Test Item Value Reference Range Comments MAGNESIUM (test code=MAG) 2.00 mg/dL 1.8-2.4 [id number] 21:28:00* Test Item Value Reference Range Comments GLUBED (test code=GLUBED) 192 MG/DL 70-110 Performed by certified prefinish operator at [facility] [id number] 17:08:00* Test Item Value Reference Range Comments GLUBED (test code=GLUBED) 158 MG/DL 70-110 Performed by certified prefinish operator at [facility] - XR PELVIS 1/2 [id number] 15:29:00 FAX: Nidia Kenny Si [phone] [place]: St: ADM FAX: Devin Shukla [phone] FAX: Fox Quezada [phone] Name: DUSTIN ALONSOADO [facility] : 1940 Age/S: 79/F [address] [place] [address] Unit #: [id number] Loc: [place] [address] Phys: Fox Shepherd Acct: [id number] Dis Date: Status: ADM IN ONE #: [phone] Exam Date: 05/10/2019 1436 FAX #: [phone] Reason: Post op SAVANNAH EXAMS: CPT CODE: [id number] XR PELVIS 1/2 VIEWS 43369 Pelvic radiogr aph May 10, 2019 1430 hours. COMPARISON: November 09, 2015. CLINICAL HISTORY: Postop SAVANNAH Discussion: Single frontal view of the pelvis obtained portably. Study is limited by technique. Patient is status post right total hip replacement with surgical hardware in place. Subcutaneous air is noted. Anatomic alignment is preserved. IMPRESSION: Status post total right hip replacement at 1529 Repor debby and signed by: Yin Guan M.D. CC: Yahaira Mittal MD; Devin Lynn MD; Fox ALBRIGHT Technologist: Sangeeta Pérez, RT(R) [facility] Date/Time/By: 05/10/2019 (1529) : By: Alia PARADAG Orig Print D/T: S: 05/10/2019 (1534) JOSE RAMON CLARK 1 Signed Report - XR FLUOROSCOPY 0-60 [id number] 13:53:00 FAX: Nidia Kenny Si [phone] [place]: St: ADM FAX: Devin Shukla [phone] Name: DUSTIN ALONSO [facility] : 1940 Age/S: 79/F [address] [place] [address] Unit #: [id number] Loc: [place] [address] Phys: Devin Lynn MD Acct: [id number] Dis Date: Status: ADM IN PHONE #: [phone] Exam Date: 05/10/2019 1130 FAX #: [phone] Reason: RT HIP OSTEOARTHRITIS Report Has Been Amended EXAMS: CPT CODE: [id number] XR FLUOROSCOPY 0-60 MIN 00999 Addendum - 05/10/2019 SIGNED 05/10/2019 ADDENDUM: [id number] ADDENDUM: Fluoroscopy time: 67.6 seconds. Reference air kerma: 18.90 mGy. at 1353 Reported and signed by: Adeilne Lynn M.D. Report Intraprocedural fluo roscopy was provided by the Department of Radiology. Any images obtained w ere interpreted by the surgeon intraoperatively. SL: [id number] at 1224 Reported and signed by: Adeline Lynn M.D. CC: Yahaira Kenny MD; Devin Lynn MD Technologist: EDGARDO MontoyaR) Deborah Date/Time/By: 05/10/2019 (7536) : By: [email or web address] Orig Print D/T: S: 05/10/2019 (3761) PAGE 1 Signed Report [id number] 12:38:00* Test Item Value Reference Range Comments GLUBED (test code=GLUBED) 97 MG/DL 70-110 Performed by certified prefinish operator at [facility] - XR FLUOROSCOPY 0-60 [id number] 12:24:00 FAX: Nidia Kenny Si [phone] [place]: St: [facility] FAX: Devin Shukla [phone] Name: DUSTIN ALONSO [facility] : 1940 Age/S: 79/F [address] [place] [address] Unit #: [id number] Loc: [place] [address] Phys: Devin Lynn MD Acct: [id number] Dis Date: Status: ADM IN PHONE #: [phone] Exam Date: 05/10/2019 1130 FAX #: [phone] Reason: RT HIP OSTEOARTHRITIS EXAMS: CPT CODE: [id number] XR FLUOROSCOPY 0-60 MIN 50011 Intraprocedural fluoroscopy was provided by the Department of Radiology. Any images obtained were interpreted by the surgeon intraoperatively. SL: [id number] Lovely worthy Signed by Kathy Lynn on 05/10/2019 at 8561 Re ported and signed by: Adeline Lynn M.D. CC: Yahaira Kenny MD; Devin Lynn MD Technologist: RT Lindsay(R) Deborah Date/Time/By: 05/10/2019 (4563) : By: [email or web address] Orig Print D/T: S: 05/10/2019 (0464) PAGE 1 Signed Report [id number] 08:53:00* Test Item Value Reference Range Comments GLUBED (test code=GLUBED) 107 MG/DL 70-110 Performed by certified prefinish operator at [facility] COMPREHENSIVE METABOLIC [id number] 11:22:00* Test Item Value Reference Range Comments SODIUM (test code=NA) 139 mEq/L 134-147 POTASSIUM (test code=K) 5.2 mEq/L 3.4-5.0 CHLORIDE (test code=CL) 105 mEq/L 100-108 CARBON DIOXIDE (test code=CO2) 30 mEq/L 21-33 ANION GAP (test code=GAP) 9 0-20 GLUCOSE (test code=GLU) 123 mg/dL 70-110 BLOOD UREA NITROGEN (test code=BUN) 20 mg/dL 7-18 GLOMERULAR FILTRATION RATE (test code=GFR) 80.9 70-80 Units of measure=ml/min/1.73 m2 CREATININE (test code=CREAT) 0.7 mg/dL 0.6-1.3 TOTAL PROTEIN (test code=PROT) 7.3 g/dL 6.4-8.2 ALBUMIN (test code=ALB) 3.50 g/dL 3.4-5.0 CALCIUM (test code=CA) 9.1 mg/dL 8.0-10.5 BILIRUBIN TOTAL (test code=BILT) 0.40 mg/dL 0.0-1.0 SGOT/AST (test code=AST) 14 IUnit/L 15-37 SGPT/ALT (test code=ALT) 24 IUnit/L 15-65 ALKALINE PHOSPHATASE TOTAL (test code=ALKP) 98 IUnit/L 20-125 COMPREHENSIVE METABOLIC [id number] 11:19:00* Test Item Value Reference Range Comments SODIUM (test code=NA) 139 mEq/L 134-147 POTASSIUM (test code=K) 5.2 mEq/L 3.4-5.0 CHLORIDE (test code=CL) 105 mEq/L 100-108 CARBON DIOXIDE (test code=CO2) 30 mEq/L 21-33 ANION GAP (test code=GAP) 9 0-20 GLUCOSE (test code=GLU) 123 mg/dL 70-110 BLOOD UREA NITROGEN (test code=BUN) 20 mg/dL 7-18 GLOMERULAR FILTRATION RATE (test code=GFR) 80.9 70-80 Units of measure=ml/min/1.73 m2 CREATININE (test code=CREAT) 0.7 mg/dL 0.6-1.3 TOTAL PROTEIN (test code=PROT) g/dL 6.4-8.2 ALBUMIN (test code=ALB) 3.50 g/dL 3.4-5.0 CALCIUM (test code=CA) 9.1 mg/dL 8.0-10.5 BILIRUBIN TOTAL (test code=BILT) mg/dL 0.0-1.0 SGOT/AST (test code=AST) 14 IUnit/L 15-37 SGPT/ALT (test code=ALT) 24 IUnit/L 15-65 ALKALINE PHOSPHATASE TOTAL (test code=ALKP) IUnit/L 20-125 PROTHROMBIN [id number] 11:10:00* Test Item Value Reference Range Comments PROTHROMBIN TIME PATIENT (test code=PTP) 11.5 SECONDS 9.3-12.9 INTERNATIONAL NORMAL RATIO (test code=INR) 1.0 0.8-1.2 TARGET INR BY INDICATION Indication INR1. Prophylaxis of venous thrombosis 2.0 - 3.0 (orthopedic surgery), Prophylaxis of venous thrombosis (other than high-risk surgery), Treatment of Deep Vein Thrombosis/Pulmonary Embolism, Prevention of systemic embolism - Tissue heart valves, Acute Myocardial Infarction (to prevent systemic embolism), Valvular heart disease, Atrial Fibrillation, Bileaflet mechanical valve in aortic position.2. Mechanical prosthetic valves (high risk), 2.5 - 3.5 Presence of Lupus Anticoagulant or Antiphospholipid Antibodies, Prevention of systemic embolism - Acute Myocardial Infarction (to prevent recurrent infarct). THROMBOPLASTIN TIME [id number] 11:10:00* Test Item Value Reference Range Comments THROMBOPLASTIN TIME PARTIAL (test code=PTT) 28.6 Seconds 25.0-39.5 Therapeutic Range: 50.4 - 88.3 Seconds Effective 02/21/2019 URINALYSIS [id number] 11:07:00* Test Item Value Reference Range Comments UA COLOR (test code=COLU) OLY YEL/STRAW UA APPEARANCE (test code=APPU) CLOUDY CLEAR UA GLUCOSE DIPSTICK (test code=DGLUU) NEGATIVE NEGATIVE UA BILIRUBIN DIPSTICK (test code=BILU) NEGATIVE NEGATIVE UA KETONE DIPSTICK (test code=KETU) TRACE NEGATIVE UA SPECIFIC GRAVITY (test code=SGU) 1.028 1.005-1.030 UA BLOOD DIPSTICK (test code=ALYSE) NEGATIVE NEGATIVE UA PH DIPSTICK (test code=ADDIE) 5.0 5.0-7.0 UA PROTEIN DIPSTICK (test code=PROU) NEGATIVE NEGATIVE UA UROBILINIOGEN DIPSTICK (test code=URO) 0.2 mg/dL 0.2-1.0 UA NITRITE DIPSTICK (test code=ANGELLA) NEGATIVE NEGATIVE UA LEUKOCYTE ESTERASE DIPSTICK (test code=LEUU) NEGATIVE NEGATIVE UA WBC (test code=WBCU) 0-3 WBC/HPF 0-3 UA RBC (test code=RBCU) 4-10 RBC/HPF 0-3 UA BACTERIA (test code=BACU) NONE SEEN /HPF NONE SEEN UA SQUAMOUS CELLS (test code=SQU) 0-5 /HPF NONE SEEN UA MUCUS (test code=MUCU) TRACE /LPF NONE SEEN CBC W/AUTO [id number] 11:06:00* Test Item Value Reference Range Comments WHITE BLOOD CELL (test code=WBC) 9.77 x10 3/uL 4.5-11.0 RED BLOOD CELL (test code=RBC) 4.68 x10 6/uL 3.54-5.02 HEMOGLOBIN (test code=HGB) 13.5 g/dL 11.0-15.0 HEMATOCRIT (test code=HCT) 43.6 % 33.0-45.0 MEAN CELL VOLUME (test code=MCV) 93.2 fL 81.0-99.0 MEAN CELL HGB (test code=MCH) 28.8 pg 27.0-33.0 MEAN CELL HGB CONCETRATION (test code=MCHC) 31.0 g/dL 33.0-37.0 RED CELL DISTRIBUTION WIDTH CV (test code=RDW) 14.8 % 11.5-14.5 RED CELL DISTRIBUTION WIDTH SD (test code=RDW-SD) 51.0 fL 37.0-54.0 PLATELET COUNT (test code=PLT) 299 x10 3/uL 150-400 MEAN PLATELET VOLUME (test code=MPV) 10.2 fL 7.0-9.0 NEUTROPHIL % (test code=NT%) 70.2 % 56.0-77.0 IMMATURE GRANULOCYTE % (test code=IG%) 0.4 % 0.0-2.0 LYMPHOCYTE % (test code=LY%) 19.4 % 14.0-32.0 MONOCYTE % (test code=MO%) 7.7 % 4.8-9.0 EOSINOPHIL % (test code=EO%) 1.6 % 0.3-3.7 BASOPHIL % (test code=BA%) 0.7 % 0.0-2.0 NUCLEATED RBC % (test code=NRBC%) 0.0 % 0-0 NEUTROPHIL # (test code=NT#) 6.85 x10 3/uL 2.0-7.6 IMMATURE GRANULOCYTE # (test code=IG#) 0.04 x10 3/uL 0.00-0.03 LYMPHOCYTE # (test code=LY#) 1.90 x10 3/uL 1.0-3.8 MONOCYTE # (test code=MO#) 0.75 x10 3/uL 0.1-0.8 EOSINOPHIL # (test code=EO#) 0.16 x10 3/uL 0.0-0.2 BASOPHIL # (test code=BA#) 0.07 x10 3/uL 0.0-0.2 NUCLEATED RBC # (test code=NRBC#) 0.00 x10 3/uL 0.0-0.1 MANUAL DIFF REQUIRED (test code=MDIFF) NO - XR CHEST 2 [id number] 11:00:00 FAX: Nidia Kenny Si [phone] [place]: St: PRE FAX: Devin Shukla [phone] Name: DUSTIN ALONSO [facility]: 1940 Age/S: 79/F [address] [place] [address] Unit #: [id number] Loc: [place] [address] Phys: Devin Lynn MD Acct: [id number] Dis Date: Status: PRE IN PHONE #: [phone] Exam Date: 05/08/2019 1034 FAX #: [phone] Reason: PREOP TOTAL HIP EXAMS: CPT CODE: [id number] XR CHEST 2 V 65613 Study: - XR CHEST 2 V 05/08/2019 10:05 AM Patient Name: DUSTIN ALONSO MR: [id number] : 1940; Age: 79 years y/o Female Ordering Physician: Devin Lynn MD Clinical Indication: PREOP TOTAL HIP Comparison: None FINDINGS LUNGS: The lungs are clear of consolidation, pleural effusion, and pneumothorax. HEART AND MEDIASTINUM: Normal size heart. LINES: None. OSSEOUS STRUCTURES: Mild spinal degenerative change without fracture, dislocation, or focal osseous lesion. OTHER: None. IMPRESSION: No acute abnormality as above discussed. SL: [id number] [id number] a t 1100 Reported and signed by: Juan Saba M.D. CC: Yahaira Kenny MD; Devin Lynn MD Technologist: RT Chava(R) Trnscrd Date/Time/By: 05/08/2019 (1100) : By: [email or web address] Orig Print D/T: S: 05/08/2019 (1239) PAGE 1 Signed Report US RENAL RETROPERITONEAL [id number] 10:30:00 [place] [address] Patient Name: DUSTIN ALONSO MR #: [id number] : 1940 Age/Sex: 79/F Req #: [id number] Adm Physician: Ordered by: ALEIDA SETH MD Report #: [id number] Location: US Room/Bed: Procedure: [id number] US/US RENAL RETROPERITONEAL COMP Exam Date: Exam Time: REPORT STATUS: Signed Renal ultrasou nd. History: Cyst of kidney Comparison: CT scan 04/02/2018. Find ings: Transverse and longitudinal imaging of the kidneys and bladder. The kidn eys are normal in echogenicity and size. 2.4 x 1.7 x 2.4 cm cyst in the mi d medial right kidney. Possible prominent right renal pelvis. The right kidney measures 11.4 x 3.7 x 5.2 cm in length and the left kidney measures 9.8 x 4.0 x 4.8 cm in length. The right renal cortex measures 1.3 cm. The left renal cortex measures 1.3 cm. No bladder abnormalities identified. Bilat eral ureteral jets are seen in the urinary bladder. Impression: 2.4 x 1 .7 x 2.4 cm simple appearing cyst in the mid medial right kidney. Possible pro minent right renal pelvis. Signed by: Dr. Ousmane Bolton M.D. on 10:32 AM Dictated By: OUSMANE BOLTON MD, MD 1032 Transcribed By: FAYE on 02/27/19 10 32 COPY TO: ALEIDA SETH MD SCR MAMM BILATERAL ELÍAS CAD DIGITAL 2018-12-22 13:11:42 - SCR MAMM BILATERAL ELÍAS CAD DIGITALBILATERAL DIGITAL SCREENING MAMMOGRAM 3D/2D WITH CAD: 12/22/2018CLINICAL: Asymptomatic. Digital breast tomosynthesis was performed in addition to routine CC and MLO views. Current mammographic images were evaluated by either a [employer] M-Vu or a [employer] ImageChecker CAD (computer aided detection system). Comparison is made to exams dated 12/21/2017 mammogram, 09/28/2016 mammogram, and 09/23/2015 mammogram - [facility]. The tissue of both breasts is predominantly fatty. There are post operative findings in the left breast. No suspicious mass, architectural distortion, malignant type calcification, or lymph node abnormality detected. Breast architecture is stable compared to prior exams.IMPRESSION: NEGATIVEThere is no mammographic evidence of malignancy. Resume annual screening mammography in one year. Nito Jordan M.D. ss/penrad:12/22/2018 13:11:42 copy to: Maurice Gardiner MD, ph: [phone], fax: [phone] Technologist: Michelle Hernández FW, [facility] sent: BIRADS 1-2 Normal Mammogram BI-RADS: 1 NegativeCT ABDOMEN/PELVIS WO [place] [address] Patient Name: DUSTIN ALONSO MR #: [id number] : 1940 Age/Sex: 78/F Req #: [id number] Adm Physician: Ordered by: ALLA CHAO Report #: [id number] Location: ER Room/Bed: Procedure: [id number] CT/CT ABDOMEN/PELVIS WO Exam D ate: Exam Time: REPORT STATUS: Signed EXAM : CT Abdomen and Pelvis WITHOUT contrast INDICATION: COMPARISON: Abdominal CT 05/11/2013 TECHNIQUE: Abdomen and pelvis were scanned utilizing a m [employer] helical scanner from the lung base to the pubic symphysis without administration of IV contrast. Absence of intravenous contrast decreases sens itivity for detection of focal lesions and vascular pathology. Coronal and sag ittal reformations were obtained. Routine protocol was performed. IV C ONTRAST: None ORAL CONTRAST: Water COMPLICATIONS: None RADIATION DOSE: Total DLP: 509.3 mGy*cm Estimated effective do se: (DLP x 0.015 x size factor) mSv CTDIvol has been reviewed. It is belo w the limits set by the Radiation Protocol Committee (RPC). FINDINGS: LINES and TUBES: None. LOWER THORAX: Unremarkable HEPATOBILIARY: No focal hepatic lesions. No biliary ductal dilation. GALLBLADDER: No r adio-opaque stones or sludge. No wall thickening. SPLEEN: No splenomegaly. PANCREAS: No focal masses or ductal dilatation. ADRENALS: No adren al nodules KIDNEYS/URETERS: No hydronephrosis. Fluid attenuating 2 cm lesion in the right kidney representing a cyst. No stones. GI TRACT: No abnormal distention, wall thickening, or evidence of bowel obstruction. Duode nal diverticulum along the second segment measuring approximately 2.9 cm. Bhaskar endix is not clearly identified. There is however no fat stranding or adenopat hy in the right lower quadrant to suggest appendicitis. Diverticula of the sig moid colon without evidence of diverticulitis. PELVIC ORGANS/BLADDER: Hys terectomy. No adnexal masses. Multiple phleboliths in the pelvis. LYMPH N ODES: No lymphadenopathy. VESSELS: Atherosclerotic calcifications of the ab dominal aorta and iliac arteries. PERITONEUM / RETROPERITONEUM: Trace moises e fluid in the pelvis. No free air. BONES: Degenerative changes of the spin e, including severe facet hypertrophy at L4-L5 and L5-S1. SOFT TISSUES: F at-containing umbilical hernia measuring approximately 2.1 x 2[address] randing to suggest strangulation. IMPRESSION: No urolithiasi s. No noncontrast CT findings to explain abdominal pain. Trace free fluid i n the pelvis, unexpected in a postmenopausal patient but otherwise nonspecific . Signed by: DR. Bird Swanson MD on 04/02/2018 11:05 AM Dictated By : BIRD SWANSON MD 1105 Transcribed By: FAYE on 04/02/18 1105 COPY TO: ALLA CHAO RENAL RETROPERITONEAL COMP [place] [address] Patient Name: DUSTIN ALONSO MR #: [id number] : 1940 Age/Sex: 78/F Req #: [id number] Adm Physician: Ordered by: ALEIDA SETH MD Report #: [id number] Location: Room/Bed: ___ Procedure: [id number] US/US RENAL RETROPERITONEAL COMP Exam Date: Exam Time: REPORT STATUS: Signed PRO CEDURE: US RETROPERITONEAL ( KIDNEY ). COMPARISON: CT abdomen and pelvis w ithout contrast 05/11/2013. INDICATIONS: Cyst Of Kidney TECHNIQUE: Smith-scal e and color sonographic images of the bilateral kidneys and bladder where obt ained in transverse and longitudinal planes. FINDINGS: RIGHT K IDNEY: 10.1 cm in length, cortical thickness 1.4 cm. Cysts: Interpolar-lower p ole round anechoic structure with posterior acoustic enhancement measuring 2. 2 x 2.1 x 2.6 cm, marginally increased in size relative to comparison CT, at which time the lesion measured 2 x 2 by 1.7 cm. Solid masses: None Stones : None Hydronephrosis: None Echogenicity: Normal renal cortical echogenicity . LEFT KIDNEY: 12.5 cm in length, cortical thickness 1.4 cm. Cysts: None Solid masses: None Stones: None Hydronephrosis: None Echogenicity: Norm al renal cortical echogenicity. Bladder: Unremarkable. Right and left uret eral jets are identified. CONCLUSION: Simple right renal cyst now gildardo suring 2.6 cm in maximum dimension, marginally increased in size relative to CT abdomen and pelvis 05/11/2013. Dictated by: Vicenta Ordoñez M.D. on 02/10 at 10:12 Electronically approved by: Vicenta Ordoñez M.D. on 02/10/2018 at 10:12 Dictated By: VICENTA ORDOÑEZ MD 1012 Transcribed By: CYNTHIA mims 02/10/18 1012 COPY TO: ALEIDA SETH MD MODIFIED BA. SWALLOW [place] [address] Patient Name: DUSTIN ALONSO MR #: [id number] : 1940 Age/Sex: 77/F Req #: [id number] Adm Physician: Ordered by: MORE MELÉNDEZ MD Report #: [id number] Location: DX Room/Bed: Procedure: [id number] DX/MODIFIED BA. SWALLOW Exam Date: 10/08/17 Exam Time: 1005 REPORT STATUS: Signed Modified Barium Swallow, October 08, 2017 Clinical history: Difficulty swallowing Comparison: None Technique: A modified barium swallow was perform ed in conjunction with speech pathology. Various viscosities of barium and bar ium-coated food items were administered under fluoroscopic observation. Fluo roscopy time: 2.6 min Cumulative air kerma: 16.10 mGy Findings: No evid ence of laryngeal penetration or aspiration. Recurrent premature spillage into the vallecula. Small volume of residue throughout the hypopharynx. Impre ssion: No evidence of penetration or aspiration. This report was g enerated with voice-recognition technology. Errors in ex assistant/program director can occur. Please interpret accordingly and contact a radiologist if there are any quest ions regarding the report. Signed by: Dr. Nikki Gomez M.D. on 10/08/2017 11:26 AM Dictated By: NIKKI GOMEZ MD 1126 Transcribed By: FAYE on 10/08/17 1126 COPY TO: MORE MELÉNDEZ MD CHEST SINGLE (NOT PORTABLE) [facility] [address] Patient Name: DUSTIN ALONSO MR #: [id number] : 1940 Age/Sex: 77/F Req #: [id number] Adm Physician: Ordered by: ALLA CHAO Report #: [id number] Location: ER Room/Bed: Procedure: [id number] DX/CHEST SINGLE (NOT PORTABLE) Exam Date: 09/28/17 Exam Time: 1710 REPORT STA TUS: Signed PROCEDURE: A single AP view of the chest. COMPARISON: [facility] radiograph and chest CT 01/23/2017. INDICATIONS: BODY ACHES, WEAK, BHAVIN RTNESS OF BREATH FINDINGS: Lines/tubes: None. Lungs: The frank gs are well inflated and clear. There is no evidence of pneumonia or pulmonar y edema. Pleura: There is no pleural effusion or pneumothorax. Hear t and mediastinum: The heart and the mediastinum are unremarkable. Bones: No acute bony abnormality. IMPRESSION: No acute cardiopulmonary disea se. Dictated by: Bird Swanson M.D. on 09/28/2017 at 17:32 Electr onically approved by: Bird Swanson M.D. on 09/28/2017 at 17:32 Dictated By: BIRD SWANSON MD 31 Transcribed By: CYNTHIA on 09/28/171731 COPY TO: ALLA BUITRAGO
[2019-07-22 12:10] VITALS: BP 115/70
[2019-07-22] MEDS ORDERED: ALBUTEROL/IPRATROPIUM 3 ML NEB ONE (13:32)
[2019-08-03] MEDS ORDERED: TELMISARTAN PO (08:56)
[2019-08-03] MEDS ORDERED: LORAZEPAM0.5 MG PO (08:56)
== END 2019-07-22 12:20 | disposition home or self-care (01) ==
LOC: ER 10:50
DX: K21.0 Gastro-esophageal reflux disease with esophagitis (principal); K29.50 Unspecified chronic gastritis without bleeding; G62.9 Polyneuropathy, unspecified; E78.5 Hyperlipidemia, unspecified; F41.9 Anxiety disorder, unspecified; F32.9 Major depressive disorder, single episode, unspecified
CPT/HCPCS: 99283

== ENCOUNTER → 2019-08-04 | Day surgery (SDC) | payer MEDICARE ==
[2019-08-03 10:02] LABS: BASOPHILS % 0.5 % (0.0-1.0); EOSINOPHILS # (AUTO) 0.1 (0.0-0.4); EOSINOPHILS % 0.8 % (0.0-6.0); HEMATOCRIT 40.9 % (34.2-44.1); HEMOGLOBIN 12.8 g/dL (12.0-16.0); LYMPHOCYTES # (AUTO) 1.2 (1.0-3.2); LYMPHOCYTES % 16.3 % (18.0-39.1); MEAN CORPUSCULAR HEMOGLOBIN 26.6 pg (28-32); MEAN CORPUSCULAR HGB CONC 31.3 g/dL (31-35); MONOCYTES # (AUTO) 0.5 (0.2-0.8); MONOCYTES % 6.3 % (4.4-11.3); NEUTROPHILS # (AUTO) 5.6 (2.1-6.9); NEUTROPHILS % 75.7 % (38.7-80.0); PLATELET COUNT 372 x10e3/uL (140-360); RED BLOOD COUNT 4.81 x10e6/uL (3.6-5.1); RED CELL DISTRIBUTION WIDTH 14.2 % (11.7-14.4)
[~2019-08-04] MED LIST changes: +FENTANYL CITRATE/PF 100MCG/2 ML INJ ONE; +GLUCAGON FOR INJ 1 MG VIAL ONE; +HYOSCYAMINE 0.125 MG TAB ONE; +LORAZEPAM0.5 MG PO; +MIDAZOLAM HCL 2 MG/2 ML VIAL ONE; +PROPOFOL IV EMULSION 10 MG/ML 50 ML VIAL ONE; +TELMISARTAN PO
--- OUTSIDE RECORDS SUMMARY | 2019-08-04 13:09 | XMS REPORT | Clinical Summary ---
Author Author [facility] Organization [facility] Address Unknown Phone Unavailable Care Team Providers Care Sample Driller Name Role Phone Asked, No Pcp PCP Unavailable Allergies Not on File Medications Not on file Active Problems Not on file Encounters Care Team Description Date Type Specialty Devin Lynn MD Primary osteoarthritis of right hip (Primary Dx) 07/04/2019 Transcribe Physical Therapy Orders after 08/03/2018 Social History Date Tobacco Use Types Packs/Day Years Used Never Assessed Sex Assigned at Date Recorded Not on file Industry Job Start Date Occupation Not on file Not on file Not on file Travel End Travel History Travel Start No recent travel history available. Last Filed Vital Signs Not on file Plan of Treatment Care Team Description Date Type Specialty Devin Lynn MD [address] [place] [phone] Michael Vincent, PT 08/07/2019 Office Visit Physical Therapy Devin Lynn MD [address] [place] [phone] Joselin Rubio, ALESSIO 08/09/2019 Office Visit Physical Therapy Devin Lynn MD [address] [place] [phone] Michael Vincent, PT 08/11/2019 Office Visit Physical Therapy Devin Lynn MD [address] [place] [phone] Michael Vincent, PT 08/14/2019 Office Visit Physical Therapy Devin Lynn MD [address] [place] [phone] FloodRahat, PT 08/16/2019 Office Visit Physical Therapy Health Maintenance Due Date Last Done Comments SHINGLES VACCINES (#1) 01/14/1991 65+ PNEUMOCOCCAL VACCINE 01/14/2006 (1 of 2 - PCV13) INFLUENZA VACCINE 06/08/2019 Results Not on fileafter 08/03/2018 Insurance Type Payer Benefit Subscriber ID Effective Phone Address Plan / Dates Group Exchange [employer] EXCHANGE [employer] PPO xxxxxxxxx 2019- EXCHANGE Present Advance Directives For more information, please contact: [phone] 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
--- OUTSIDE RECORDS SUMMARY | 2019-08-04 13:10 | XMS REPORT ---
Author Author Admin, Veyo Organization Unknown Address Unknown Phone Unavailable PROBLEMS Condition Status Date Provider Notes INSOMNIA DISORDER, RECURRENT active Michael Waller ANXIETY DISORDER, OTHER SPECIFIED active Michael Waller OBESITY active Michael Waller ANXIETY DISORDER NOS active Michael Waller ENCOUNTERS Date Type Provider Location Encounter Diagnosis - Ambulatory Encounter Michael Garcia [facility] UNK - Ambulatory Encounter Michael Glez [place] [facility] UNK - Ambulatory Encounter Michael Perkins [facility] UNK - Ambulatory Encounter Michael Waller [facility] UNK - Ambulatory Encounter Michael Waller [facility] UNK - Ambulatory Encounter Michael Garcia [facility] UNK - Ambulatory Encounter Michael Glez [facility] UNK - Ambulatory Encounter Michael Waller [facility] UNK - Ambulatory Encounter Michael Downs [facility] UNK - Ambulatory Encounter Michael Waller [facility] UNK - Ambulatory Encounter Michael Torrez [facility] UNK - [facility] Ambulatory Encounter Michael Waller [facility] UNK - [facility]ulatory Encounter Michael Waller [facility] UNK - Ambulatory Encounter Michael Turner [facility] UNK [facility] Ambulatory Encounter Daphney [facility] Ambulatory Encounter Michael Shelley [facility] UNK - [facility] Ambulatory Encounter Michael Waller [facility] UNK - Ambulatory Encounter Michael Lemon [facility] UNK - Ambulatory Encounter Michael Turner [facility] UNK - Ambulatory Encounter Michael Waller [facility] UNK - Ambulatory Encounter Michael Waller [facility] UNK - Ambulatory Encounter Michael Turner [facility] UNK - Amb[facility] - Ambulatory Encounter Michael Turner [facility] UNK - Ambulatory Encounter Michael Waller [facility] UNK - Ambulatory Encounter Michael Garcia [facility] UNK - Ambulatory Encounter Michael Waller [facility] UNK - Ambulatory Encounter Michael Turner [facility] UNK - Ambulatory Encounter Michael Waller [facility] UNK - Ambulatory Encounter Michael Bach [facility] UNK - Ambulatory Encounter Michael Garcia [facility] UNK - Ambulatory Encounter Michael Garcia [facility] UNK - Ambulatory Encounter Michael Grant [facility] UNK - Ambulatory Encounter Michael Waller [facility] UNK - Ambulatory Encounter Michael Cuevas [facility] UNK - Ambulatory Encounter Michael Grant [facility] UNK - Ambulatory Encounter Michael Waller [facility] UNK - Ambulatory Encounter Michael Turner [facility] UNK - Ambulatory Encounter Michael Garcia [facility] UNK - Ambulatory Encounter Michael Grant [facility] UNK - Ambulatory Encounter Michael Waller [facility] UNK - Ambulatory Encounter Michael Resee [facility] INSOMNIA DISORDER, RECURRENT - Ambulatory Encounter Michael Parsons [facility] UNK - Ambulatory Encounter ELEANOR Desktop Michael Fallon [facility] UNK - Ambulatory Encounter Michael Waller [facility] UNK - Ambulatory Encounter Michael Thompson [facility] UNK - Ambulatory Encounter Michael Waller [facility] UNK - Ambulatory Encounter Michael Waller [facility] UNK - Ambulatory Encounter Michael Reese [facility] UNK - Ambulatory Encounter Michael Parsons [facility] UNK - Ambulatory Encounter Michael Waller [facility] UNK - Ambulatory Encounter Michael Rockwell [facility] UNK - Ambulatory Encounter Michael Waller [facility] UNK - Ambulatory Encounter Michael Grant [facility] UNK - Ambulatory Encounter Michael Grant [facility] UNK - Ambulatory Encounter Michael Garcia [facility] UNK - Ambulatory Encounter Michael Garcia [facility] ANXIETY DISORDER, OTHER SPECIFIED - Ambulatory Encounter Michael Perezgabriel Waller [facility] UNK - Ambulatory Encounter Michael Toney [facility] UNK - Ambulatory Encounter Michael Perezgabriel Waller [facility] UNK - Ambulatory Encounter Christin Waller [facility] UNK - Ambulatory Encounter Michael Rockwell [facility] UNK - Ambulatory Encounter Christin Waller [facility] UNK - Ambulatory Encounter Michael Toney [facility] UNK - Ambulatory Encounter Christin Waller [facility] UNK - Ambulatory Encounter Micheal Dunaway [facility] UNK - Ambulatory Encounter Christin Toney [facility] UNK - Ambulatory Encounter Michael Dunaway [facility] OBESITY - Ambulatory Encounter Michael Dunaway [facility] ANXIETY DISORDER NOS - Ambulatory Encounter Aamir Toney [facility] UNK VITAL SIGNS No Information Available ALLERGIES Allergy Name Onset Date Reaction Criticality Status SULFA High Criticality active REASON FOR REFERRAL No Information Available RESULTS No Information Available HISTORY OF IMMUNIZATIONS No Information Available HISTORY OF MEDICATION USE Medication Instructions Dates Provider Comments NYSTATIN [id number] UNIT/ML MOUTH/THROAT SUSPENSION Michael Waller PANTOPRAZOLE SODIUM 40 MG ORAL TABLET DELAYED RELEASE Michael Waller LORAZEPAM 0.5 MG TABS TAKE ONE-HALF TO ONE (1/2 TO 1) TABLET(S) BY MOUTH AT BEDTIME. Michael Waller VALIUM 2 MG ORAL TABLET Take 1 tab By Mouth q8 hours As Needed anxiety - Michael Waller LEXAPRO 20 MG ORAL TABLET Take 1 tab By Mouth take at bedtime Michael Waller SOCIAL HISTORY Date Observation Value Provider smoking status never smoker Michael Waller smoking status never smoker Michael Waller smoking status never smoker Michael Waller smoking status never smoker Michael Waller " Exercise Program Referral T Michael Waller " Weight Management Counseling Provided T Michael Waller " Nutrition intervention T Michael Waller smoking status never smoker Michael Waller smoking status never smoker Michael Waller " social history reviewed E&M reviewed today Michael Waller smoking status never smoker Daphney Cleveland " social history reviewed E&M reviewed today Daphney Cleveland smoking status never smoker Michael Waller " social history reviewed E&M reviewed today Michael Waller smoking status never smoker Michael Waller " social history reviewed E&M reviewed today Michael Waller smoking status never smoker Michael Waller " social history reviewed E&M reviewed today Michael Waller smoking status never smoker Michael Waller " social history reviewed E&M reviewed today Michael Waller smoking status never smoker Michael Waller " social history reviewed E&M reviewed today Michael Waller smoking status never smoker Michael Waller " social history reviewed E&M reviewed today Michael Waller smoking status never smoker Michael Waller " social history reviewed E&M reviewed today Michael Waller smoking status never smoker Michael Waller " social history reviewed E&M reviewed today Michael Waller " Exercise Program Referral T Michael Waller " Weight Management Counseling Provided T Michael Waller " Nutrition intervention T Michael Waller smoking status never smoker Michael Waller " social history reviewed E&M reviewed today Michael Waller " Exercise Program Referral T Michael Waller " Weight Management Counseling Provided Carlyn Waller" Nutrition intervention T Michael Waller smoking status never smoker Michael Waller " social history reviewed E&M reviewed today Michael Waller smoking status never smoker Michael Waller " social history reviewed E&M reviewed today Michael Waller smoking status never smoker Michael Waller " social history reviewed E&M reviewed today Michael Waller smoking status never smoker Michael Waller " social history reviewed E&M reviewed today Michael Waller Exercise Program Referral Carlyn Waller " Weight Management Counseling Provided Carlyn Waller " Nutrition intervention T Michael Waller" social history reviewed E&M reviewed today Michael Waller social history reviewed E&M reviewed today Michael Waller social history reviewed E&M reviewed today Michael Waller social history reviewed E&M reviewed today Michael Waller social history reviewed E&M reviewed today Michael Waller drug use, illicit Never Michael Waller" alcohol use Never Michael Waller" smoking status never smoker Michael Waller" family support and and remarried- altogether - 44 years - 2 girls Michael Waller" home/family situation, assessment Currently living with and oldest daughter. Michael Waller FUNCTIONAL STATUS No Information Available MENTAL STATUS Date Observation Value Provider mental status assessment, judgment good Michael Waller" insight (mental status exam) fair Michael Waller" Mental Status Exam: intelligence oriented to person, oriented to place, oriented to time, oriented to reality Michael Waller" hallucinations none Michael Waller" thought content (mental status exam) (E&M) lucid Michael Waller " mental status assessment, process goal-directed, logical Michael Waller " mental status assessment, sensorium alert, clear Michael Waller " affect (mental status exam) congruent, normal intensity, normal range Michael Waller" mental status assessment, speech activity normal flow, normal pace, normal pressure, normal rate, normal tone, normal volume, spontaneous Michael Waller " mental status assessment, motor activity normal posture, psychomotor agitated Michael Waller" behavior (mental status exam) appropriate, cooperative, good eye contact, responsive Michael Waller" mental appearance (mental status exam) adequate hygiene, appropriate dress, neat Michael Waller mental status assessment, judgment good Berno " insight (mental status exam) fair Berno " Mental Status Exam: intelligence oriented to person, oriented to place, oriented to time, oriented to reality Berno " hallucinations none Berno " thought content (mental status exam) (E&M) lucid Berno " mental status assessment, process goal-directed, logical Berno " mental status assessment, sensorium alert, clear Berno " affect (mental status exam) congruent, normal intensity, normal range Berno " mood (mental status exam) pleasant Berno " mental status assessment, speech activity normal flow, normal pace, normal pressure, normal rate, normal tone, normal volume, spontaneous Berno " mental status assessment, motor activity normal posture Berno " behavior (mental status exam) appropriate, cooperative, good eye contact, responsive Berno " mental appearance (mental status exam) adequate hygiene, appropriate dress, neat Christin mental status assessment, judgment good Berno " insight (mental status exam) fair Berno " Mental Status Exam: intelligence oriented to person, oriented to place, oriented to time, oriented to reality Berno " hallucinations none Berno " thought content (mental status exam) (E&M) lucid Berno " mental status assessment, process goal-directed, logical Berno " mental status assessment, sensorium alert, clear Berno " affect (mental status exam) congruent, normal intensity, normal range Berno " mood (mental status exam) pleasant Berno " mental status assessment, speech activity normal flow, normal pace, normal pressure, normal rate, normal tone, normal volume, spontaneous Berno " mental status assessment, motor activity normal posture Berno " behavior (mental status exam) appropriate, cooperative, good eye contact, responsive Berno " mental appearance (mental status exam) adequate hygiene, appropriate dress, neat Michael Perezgabriel mental status assessment, judgment good Berno " insight (mental status exam) fair Berno " Mental Status Exam: intelligence oriented to person, oriented to place, oriented to time, oriented to reality Berno " hallucinations none Berno " thought content (mental status exam) (E&M) lucid Berno " mental status assessment, process goal-directed, logical Berno " mental status assessment, sensorium alert, clear Berno " affect (mental status exam) congruent, normal intensity, normal range Berno " mood (mental status exam) pleasant Berno " mental status assessment, speech activity normal flow, normal pace, normal pressure, normal rate, normal tone, normal volume, spontaneous Berno " mental status assessment, motor activity normal posture Berno " behavior (mental status exam) appropriate, cooperative, good eye contact, polite, responsive Berno " mental appearance (mental status exam) adequate hygiene, appropriate dress, neat Michael Waller mental status assessment, judgment good Berno " insight (mental status exam) fair Berno " Mental Status Exam: intelligence oriented to person, oriented to place, oriented to time, oriented to reality Berno " hallucinations none Berno " thought content (mental status exam) (E&M) lucid Berno " mental status assessment, process goal-directed, logical Berno " mental status assessment, sensorium alert, clear Berno " affect (mental status exam) congruent, normal intensity, normal range Berno " mood (mental status exam) pleasant Berno " mental status assessment, speech activity normal flow, normal pace, normal pressure, normal rate, normal tone, normal volume, spontaneous Berno " mental status assessment, motor activity normal posture Berno " behavior (mental status exam) appropriate, cooperative, good eye contact, polite, responsive Berno " mental appearance (mental status exam) adequate hygiene, appropriate dress, neat Michael Waller mental status assessment, judgment good Berno " insight (mental status exam) fair Berno " Mental Status Exam: intelligence oriented to person, oriented to place, oriented to time, oriented to reality Berno " hallucinations none Berno " thought content (mental status exam) (E&M) lucid Berno " mental status assessment, process goal-directed, logical Berno " mental status assessment, sensorium alert, clear Berno " affect (mental status exam) congruent, normal intensity, normal range Berno " mood (mental status exam) pleasant Berno " mental status assessment, speech activity normal flow, normal pace, normal pressure, normal rate, normal tone, normal volume, spontaneous Berno " mental status assessment, motor activity normal posture Berno " behavior (mental status exam) appropriate, cooperative, good eye contact, polite, responsive Berno " mental appearance (mental status exam) adequate hygiene, appropriate dress, neat Berno mood (mental status exam) pleasant Daphney Alton " mental status assessment, judgment good Daphneyamanda Kruseford " insight (mental status exam) fair Daphney Alton " Mental Status Exam: intelligence oriented to person, oriented to place, oriented to time, oriented to reality Daphney Alton " hallucinations none Daphney Alton " thought content (mental status exam) (E&M) lucid Daphney Kruseford " mental status assessment, process goal-directed, logical Daphneyamanda Kruseford " mental status assessment, sensorium alert, attentive, clear Daphney Cristofer " affect (mental status exam) congruent, normal intensity, normal range Daphney Alton " mental status assessment, speech activity normal flow, normal pace, normal pressure, normal rate, normal tone, normal volume, spontaneous Daphneyamanda Kruseford " mental status assessment, motor activity normal posture Daphneyamanda Kruseford " behavior (mental status exam) appropriate, cooperative, good eye contact, polite, responsive Daphney Kruseford " mental appearance (mental status exam) adequate hygiene, appropriate dress, neat Daphney Kruseford mental status assessment, judgment good Berno " insight (mental status exam) fair Berno " Mental Status Exam: intelligence oriented to person, oriented to place, oriented to time, oriented to reality Berno " hallucinations none Berno " thought content (mental status exam) (E&M) lucid Michael Perezo " mental status assessment, process goal-directed, logical Berno " mental status assessment, sensorium alert, clear Berno " affect (mental status exam) congruent, normal intensity, normal range Berno " mental status assessment, speech activity normal flow, normal pace, normal pressure, normal rate, normal tone, normal volume, spontaneous Berno " mental status assessment, motor activity normal posture Berno " behavior (mental status exam) appropriate, cooperative, good eye contact, responsive Berno " mental appearance (mental status exam) adequate hygiene, appropriate dress, neat Berno mental status assessment, judgment good Berno " insight (mental status exam) fair Berno " Mental Status Exam: intelligence oriented to person, oriented to place, oriented to time, oriented to reality Berno " hallucinations none Berno " thought content (mental status exam) (E&M) lucid Berno " mental status assessment, process goal-directed, logical Berno " mental status assessment, sensorium alert, clear Berno " affect (mental status exam) congruent, normal intensity, normal range Berno " mental status assessment, speech activity normal flow, normal pace, normal pressure, normal rate, normal tone, normal volume, spontaneous Berno " mental status assessment, motor activity normal posture Berno " behavior (mental status exam) appropriate, cooperative, good eye contact, responsive Berno " mental appearance (mental status exam) adequate hygiene, appropriate dress, neat Berno mental status assessment, judgment good Berno " insight (mental status exam) fair Berno " Mental Status Exam: intelligence oriented to person, oriented to place, oriented to time, oriented to reality Berno " hallucinations none Berno " thought content (mental status exam) (E&M) lucid Berno " mental status assessment, process goal-directed, logical Berno " mental status assessment, sensorium alert, clear Berno " affect (mental status exam) congruent, normal intensity, normal range Berno " mental status assessment, speech activity normal flow, normal pace, normal pressure, normal rate, normal tone, normal volume, spontaneous Berno " mental status assessment, motor activity normal posture Berno " behavior (mental status exam) appropriate, cooperative, good eye contact, responsive Berno " mental appearance (mental status exam) adequate hygiene, appropriate dress, neat Berno mental status assessment, judgment good Berno " insight (mental status exam) fair Berno " Mental Status Exam: intelligence oriented to person, oriented to place, oriented to time, oriented to reality Berno " hallucinations none Berno " thought content (mental status exam) (E&M) lucid Berno " mental status assessment, process goal-directed, logical Berno " mental status assessment, sensorium alert, clear Berno " affect (mental status exam) congruent, normal intensity, normal range Berno " mental status assessment, speech activity normal flow, normal pace, normal pressure, normal rate, normal tone, normal volume, spontaneous Berno " mental status assessment, motor activity normal posture Berno " behavior (mental status exam) appropriate, cooperative, good eye contact, responsive Berno " mental appearance (mental status exam) adequate hygiene, appropriate dress, neat Michael Perezo mental status assessment, judgment good Berno " insight (mental status exam) fair Berno " Mental Status Exam: intelligence oriented to person, oriented to place, oriented to time, oriented to reality Berno " hallucinations none Berno " thought content (mental status exam) (E&M) lucid Berno " mental status assessment, process goal-directed, logical Berno " mental status assessment, sensorium alert, clear Berno " affect (mental status exam) congruent, normal intensity, normal range Berno " mental status assessment, speech activity normal flow, normal pace, normal pressure, normal rate, normal tone, normal volume, spontaneous Berno " mental status assessment, motor activity normal posture Berno " behavior (mental status exam) appropriate, cooperative, good eye contact, responsive Berno " mental appearance (mental status exam) adequate hygiene, appropriate dress, neat Michael Perezo mental status assessment, judgment good Berno " insight (mental status exam) fair Berno " Mental Status Exam: intelligence oriented to person, oriented to place, oriented to time, oriented to reality Berno " hallucinations none Berno " thought content (mental status exam) (E&M) lucid Michael Perezo " mental status assessment, process goal-directed, logical Berno " mental status assessment, sensorium alert, clear Berno " affect (mental status exam) congruent, normal intensity, normal range Berno " mental status assessment, speech activity normal flow, normal pace, normal pressure, normal rate, normal tone, normal volume, spontaneous Berno " mental status assessment, motor activity normal posture Berno " behavior (mental status exam) appropriate, cooperative, good eye contact, responsive Berno " mental appearance (mental status exam) adequate hygiene, appropriate dress, neat Michael Perezo mental status assessment, judgment good Berno " insight (mental status exam) fair Berno " Mental Status Exam: intelligence oriented to person, oriented to place, oriented to time, oriented to reality Berno " hallucinations none Berno " thought content (mental status exam) (E&M) lucid Berno " mental status assessment, process goal-directed, logical Berno " mental status assessment, sensorium alert, clear Berno " affect (mental status exam) congruent, normal intensity, normal range Berno " mental status assessment, speech activity normal flow, normal pace, normal pressure, normal rate, normal tone, normal volume, spontaneous Berno " mental status assessment, motor activity normal posture Berno " behavior (mental status exam) appropriate, cooperative, good eye contact, responsive Berno " mental appearance (mental status exam) adequate hygiene, appropriate dress, neat Michael ePrezo mental status assessment, judgment fair Berno " insight (mental status exam) fair Berno " Mental Status Exam: intelligence oriented to person, oriented to place, oriented to time, oriented to reality Berno " hallucinations none Berno " thought content (mental status exam) (E&M) lucid Berno " mental status assessment, process goal-directed, logical Berno " mental status assessment, sensorium alert, clear Berno " affect (mental status exam) congruent, normal intensity, normal range Berno " mental status assessment, speech activity normal flow, normal pace, normal pressure, normal rate, normal tone, normal volume, spontaneous Berno " mental status assessment, motor activity normal posture Berno " behavior (mental status exam) appropriate, cooperative, good eye contact, responsive Berno " mental appearance (mental status exam) adequate hygiene, appropriate dress, neat Berno mental status assessment, judgment fair Berno " insight (mental status exam) fair Berno " Mental Status Exam: intelligence oriented to person, oriented to place, oriented to time, oriented to reality Berno " hallucinations none Berno " thought content (mental status exam) (E&M) lucid Berno " mental status assessment, process goal-directed, logical Berno " mental status assessment, sensorium alert, clear Berno " affect (mental status exam) congruent, normal intensity, normal range Berno " mental status assessment, speech activity normal flow, normal pace, normal pressure, normal rate, normal tone, normal volume, spontaneous Berno " mental status assessment, motor activity normal posture Berno " behavior (mental status exam) appropriate, cooperative, good eye contact, responsive Berno " mental appearance (mental status exam) adequate hygiene, appropriate dress, neat Berno mental status assessment, judgment fair Berno " insight (mental status exam) fair Berno " Mental Status Exam: intelligence oriented to person, oriented to place, oriented to reality Berno " hallucinations none Berno " thought content (mental status exam) (E&M) lucid Michael Perezo " mental status assessment, process goal-directed, logical Berno " mental status assessment, sensorium alert, clear Berno " affect (mental status exam) congruent, normal intensity, normal range Berno " mental status assessment, speech activity normal flow, normal pace, normal pressure, normal rate, normal tone, normal volume, spontaneous Berno " mental status assessment, motor activity normal posture Berno " behavior (mental status exam) appropriate, cooperative, good eye contact, responsive Berno " mental appearance (mental status exam) adequate hygiene, appropriate dress, neat Michael Perezo mental status assessment, judgment fair Berno " insight (mental status exam) fair Berno " Mental Status Exam: intelligence oriented to person, oriented to place, oriented to time, oriented to reality Berno " hallucinations none Berno " thought content (mental status exam) (E&M) lucid Michael Perezo " mental status assessment, process goal-directed, logical Berno " mental status assessment, sensorium alert, clear Berno " affect (mental status exam) congruent, normal intensity, normal range Berno " mental status assessment, speech activity normal flow, normal pace, normal pressure, normal rate, normal tone, normal volume, spontaneous Berno " mental status assessment, motor activity normal posture Berno " behavior (mental status exam) appropriate, cooperative, good eye contact, responsive Berno " mental appearance (mental status exam) adequate hygiene, appropriate dress, neat Berno mental status assessment, judgment fair Berno " insight (mental status exam) fair Berno " Mental Status Exam: intelligence oriented to person, oriented to place, oriented to time, oriented to reality Berno " hallucinations none Berno " thought content (mental status exam) (E&M) lucid Michael Perezo " mental status assessment, process goal-directed, logical Berno " mental status assessment, sensorium alert, clear Berno " affect (mental status exam) congruent, normal intensity, normal range Berno " mental status assessment, speech activity normal flow, normal pace, normal pressure, normal rate, normal tone, normal volume, spontaneous Berno " mental status assessment, motor activity normal gait, normal posture Berno " behavior (mental status exam) appropriate, cooperative, good eye contact, responsive Berno " mental appearance (mental status exam) adequate hygiene, appropriate dress, neat Chrisgabriel mental status assessment, judgment fair Michael Perezo " insight (mental status exam) fair Berno " Mental Status Exam: intelligence oriented to person, oriented to place, oriented to time, oriented to reality Berno " hallucinations none Berno " thought content (mental status exam) (E&M) lucid Berno " mental status assessment, process goal-directed, logical Berno " mental status assessment, sensorium alert, clear Berno " affect (mental status exam) congruent, normal intensity, normal range Berno " mental status assessment, speech activity normal flow, normal pace, normal pressure, normal rate, normal tone, normal volume, spontaneous Berno " mental status assessment, motor activity normal gait, normal posture Berno " behavior (mental status exam) appropriate, cooperative, good eye contact, responsive Berno " mental appearance (mental status exam) adequate hygiene, appropriate dress, neat Chrisgabriel mental status assessment, judgment fair Chriso " insight (mental status exam) fair Berno " Mental Status Exam: intelligence oriented to person, oriented to place, oriented to time, oriented to reality Berno " hallucinations none Berno " thought content (mental status exam) (E&M) lucid Berno " mental status assessment, process goal-directed, logical Berno " mental status assessment, sensorium alert, clear Berno " affect (mental status exam) congruent, normal intensity, normal range Berno " mental status assessment, speech activity normal flow, normal pace, normal pressure, normal rate, normal tone, normal volume, spontaneous Berno " mental status assessment, motor activity normal gait, normal posture Berno " behavior (mental status exam) appropriate, cooperative, good eye contact, responsive Berno " mental appearance (mental status exam) adequate hygiene, appropriate dress, neat Michael Waller mental status assessment, judgment fair Berno " insight (mental status exam) fair Berno " Mental Status Exam: intelligence oriented to person, oriented to place, oriented to time, oriented to reality Berno " hallucinations none Berno " thought content (mental status exam) (E&M) lucid Berno " mental status assessment, process goal-directed, logical Berno " mental status assessment, sensorium alert, clear Berno " affect (mental status exam) congruent, normal intensity, normal range Berno " mental status assessment, speech activity normal flow, normal pace, normal pressure, normal rate, normal tone, normal volume, spontaneous Berno " mental status assessment, motor activity normal gait, normal posture Berno " behavior (mental status exam) appropriate, cooperative, good eye contact, responsive Berno " mental appearance (mental status exam) adequate hygiene, appropriate dress, neat Berno mental status assessment, judgment fair Berno " insight (mental status exam) fair Berno " Mental Status Exam: intelligence oriented to person, oriented to place, oriented to time, oriented to reality Berno " hallucinations none Berno " thought content (mental status exam) (E&M) lucid Berno " mental status assessment, process goal-directed, logical Berno " mental status assessment, sensorium alert, clear Berno " affect (mental status exam) congruent, normal intensity, normal range Berno " mental status assessment, speech activity normal flow, normal pace, normal pressure, normal rate, normal tone, normal volume, spontaneous Berno " mental status assessment, motor activity normal gait, normal posture Berno " behavior (mental status exam) appropriate, cooperative, good eye contact Berno " mental appearance (mental status exam) adequate hygiene, appropriate dress, neat Berno mental status assessment, judgment fair Berno " insight (mental status exam) fair Berno " Mental Status Exam: intelligence oriented to person, oriented to place, oriented to time, oriented to reality Berno " hallucinations none Berno " thought content (mental status exam) (E&M) lucid Berno " mental status assessment, process goal-directed, logical Berno " mental status assessment, sensorium alert, clear Berno " affect (mental status exam) normal intensity, normal range Berno " mental status assessment, speech activity normal flow, normal pace, normal pressure, normal rate, normal tone, normal volume, spontaneous Berno " behavior (mental status exam) appropriate, cooperative, good eye contact, responsive Berno " mental appearance (mental status exam) adequate hygiene, appropriate dress Michael Waller mental status assessment, judgment fair Berno " insight (mental status exam) fair Berno " Mental Status Exam: intelligence oriented to person, oriented to place, oriented to time, oriented to reality Berno " hallucinations none Berno " thought content (mental status exam) (E&M) lucid Berno " mental status assessment, process goal-directed, logical Berno " mental status assessment, sensorium alert, clear Berno " affect (mental status exam) congruent, normal intensity, normal range Berno " mental status assessment, speech activity normal flow, normal pace, normal pressure, normal rate, normal tone, normal volume Berno " mental status assessment, motor activity normal gait, normal posture Berno " behavior (mental status exam) appropriate, cooperative, good eye contact, responsive Berno " mental appearance (mental status exam) adequate hygiene, appropriate dress, neat Michael Waller anxiety worry a lot Berno " mental status assessment, judgment fair Berno " insight (mental status exam) fair Berno " Mental Status Exam: intelligence adequate fund of information, oriented to person, oriented to place, oriented to time, oriented to situation Berno " hallucinations none Berno " thought content (mental status exam) (E&M) lucid Michael Perezo " mental status assessment, process goal-directed, logical Berno " mental status assessment, sensorium alert, clear Berno " affect (mental status exam) congruent, normal intensity, normal range Berno " mental status assessment, speech activity normal flow, normal pace, normal pressure, normal rate, normal tone, normal volume, spontaneous Berno " mental status assessment, motor activity normal gait, normal posture Berno " behavior (mental status exam) appropriate, cooperative, good eye contact, responsive Mcihael Berno " mental appearance (mental status exam) adequate hygiene, appropriate dress Michael Waller MEDICAL EQUIPMENT No Information Available FAMILY HISTORY No Information Available INSURANCE PROVIDERS No Information Available ADVANCE DIRECTIVES No Information Available TREATMENT PLAN Date Name Est Patient Detailed - 35920 Est Patient Exp Problem - 85479 Est Patient Exp Problem - 05158 Est Patient Exp Problem - 71335 Est Patient Exp Problem - 81514 Est Patient Exp Problem - 54431 Est Patient Exp Problem - 97479 Est Patient Exp Problem - 85015 Est Patient Detailed - 25828 Est Patient Exp Problem - 53876 Est Patient Exp Problem - 29397 Est Patient Exp Problem - 95307 Est Patient Detailed - 30826 Est Patient Exp Problem - 59513 Est Patient Exp Problem - 73790 Est Patient Exp Problem - 39785 Est Patient Exp Problem - 26158 Est Patient Exp Problem - 07177 Est Patient Exp Problem - 68769 Est Patient Exp Problem - 07846 Est Patient Exp Problem - 01704 Est Patient Exp Problem - 69363 Est Patient Exp Problem - 28382 Est Patient Exp Problem - 58006 Est Patient Exp Problem - 92684 Diagnostic evaluation with medical - 75916 HISTORY OF PROCEDURES Procedure Date Procedure Name Provider Procedure Notes Status Diagnostic evaluation with medical - 65406 Michael Waller completed GOALS No Information Available HEALTH CONCERNS No Information Available
[2019-08-04 17:08] VITALS: BP 120/64
[2019-08-04 18:53] LABS: WBC,FECAL (FECAL LACTOFERRIN) NEGATIVE (NEGATIVE)
--- NOTE | 2019-08-05 00:23 | Operative Report ---
DATE OF PROCEDURE: 08/04/2019 SURGEON: Farzad Eastman MD PROCEDURES: EGD with biopsies and esophageal dilatation and colonoscopy with polypectomy and biopsies. INDICATIONS FOR EGD: Dysphagia and nausea. INDICATIONS FOR COLONOSCOPY: Diarrhea and personal history of colon polyps. MEDICATIONS: The patient was done under MAC. Please see anesthesiologist's note. PROCEDURE IN DETAIL: With the patient in left lateral decubitus position, flexible fiberoptic Olympus gastroscope was introduced into the esophagus under direct visualization without any difficulty. There was some patchy erythema noted in distal esophagus. There was a mild stricture noted at the GE junction that was dilated to size 50-[place]. The scope was then advanced with ease into the stomach. Mucosa overlying the antrum and the body revealed some patchy erythema and [id number] edema and biopsies were obtained and sent to stain for H pylori. Two polyps in the body of the stomach were partially excised with cold biopsy forceps. The pylorus was of normal contour and shape, it was intubated with ease and the scope was advanced all the way to the second portion of the duodenum. The scope was then withdrawn slowly mucosa overlying the proximal second portion and the duodenal bulb appeared to be within normal limits. The scope was then withdrawn back into the stomach and retroflexed and mucosa overlying the fundus and cardia appeared to be within normal limits. The scope was then straightened out, it was subsequently withdrawn. The patient tolerated the procedure well. IMPRESSION: 1. Distal esophagitis, mild. 2. 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 3. Gastritis, biopsied. Biopsies sent to stain for Helicobacter pylori. 4. Gastric polyps, body, partially excised with cold biopsy forceps. PLAN: Follow up histology. We will continue Protonix 40 mg one p.o. q.a.m. before meals. SECOND PROCEDURE: The patient was then turned around after adequate lubrication of the anal canal. A flexible fiberoptic Olympus colonoscope was inserted into the rectum with ease and advanced all the way to the cecum. Mucosa overlying the cecum appeared to be within normal limits. The ileocecal valve was intubated and the scope was advanced into the terminal ileum. Biopsies were obtained. The scope was then withdrawn back into the colon. It was then withdrawn slowly. Mucosa overlying the ascending and transverse colon appeared to be within normal limits. One polyp was removed per cold biopsy forceps from the proximal descending colon. Diverticular disease was noted in the sigmoid colon. The rectum appeared to be within normal limits. The scope was then retroflexed into the distal rectum and small internal hemorrhoids were noted, none of which was actively bleeding. The scope was then straightened out, it was subsequently withdrawn after securing an adequate stool specimen, that was sent for the appropriate stool studies. The patient tolerated the procedure well. IMPRESSION: 1. Descending colon polyp removed per cold biopsy forceps. 2. Diverticulosis. 3. Internal hemorrhoids, none actively bleeding. PLAN: Follow up histology. Follow up stool studies. Initiate Visbiome 1 p.o. b.i.d. Increase Bentyl to 20 mg one p.o. t.i.d. The patient might benefit from a followup colonoscopy in 5 years. Farzad Eastman MD [facility] [place]/MODL /[id number] cc: Yahaira Palma MD
[2019-08-05 12:24] LABS: C DIFFICILE TOXIN A&B AMP PROB NEGATIVE (NEGATIVE)
== END | disposition home or self-care (01) ==
LOC: OR 12:53
PROVIDERS: ATTEND Internal Medicine Gastroenterology
DX: K22.2 Esophageal obstruction (principal); D12.4 Benign neoplasm of descending colon; K31.7 Polyp of stomach and duodenum; K29.70 Gastritis, unspecified, without bleeding; K20.8 Other esophagitis; K57.30 Diverticulosis of large intestine without perforation or abscess without bleeding; K64.8 Other hemorrhoids; R19.7 Diarrhea, unspecified; Z01.810 Encounter for preprocedural cardiovascular examination; Z01.812 Encounter for preprocedural laboratory examination
CPT/HCPCS: 36415 ×2; 43239; 43450; 45380; 82948; 83630; 83993; 85025; 87045; 87177; 87328; 87493; 88305; 88312; 93005; J1610; J2250; J2704; J3010; 45384

== ENCOUNTER 2019-09-23 13:33 | Emergency (ER) | payer MEDICARE ==
[~2019-09-23] VITALS: Ht 160 cm; Wt 81.6 kg
[~2019-09-23 13:33] MED LIST changes: -FENTANYL CITRATE/PF 100MCG/2 ML INJ ONE; -GLUCAGON FOR INJ 1 MG VIAL ONE; -HYOSCYAMINE 0.125 MG TAB ONE; -MIDAZOLAM HCL 2 MG/2 ML VIAL ONE; -PROPOFOL IV EMULSION 10 MG/ML 50 ML VIAL ONE
--- OUTSIDE RECORDS SUMMARY | 2019-09-23 13:37 | XMS REPORT ---
Author Author Admin, [place] Organization Unknown Address Unknown Phone Unavailable PROBLEMS Condition Status Date Provider Notes INSOMNIA DISORDER, RECURRENT active Michael Waller ANXIETY DISORDER, OTHER SPECIFIED active Michael Waller OBESITY active Michael Waller ANXIETY DISORDER NOS active Michael Waller ENCOUNTERS Date Type Provider Location Encounter Diagnosis - Ambulatory Encounter Michael Waller [facility] UNK - Ambulatory Encounter Michael Garcia [facility] UNK - Ambulatory Encounter Michael Lee [facility] UNK - Ambulatory Encounter Michael Waller [facility] UNK - Ambulatory Encounter Michael Garcia [facility] UNK - Ambulatory Encounter Michael Garcia [facility] UNK - Ambulatory Encounter Michael Downey [facility] UNK - Ambulatory Encounter Michael Perkins [facility] UNK - Ambulatory Encounter Michael Waller [facility] UNK - Ambulatory Encounter Michael Waller [facility] UNK - Ambulatory Encounter Michael Garcia [facility] UNK - Ambulatory Encounter Michael Garcia Kindra Dalton [facility] UNK - Ambulatory Encounter Michael Waller [facility] UNK - Ambulatory Encounter Michael Downs [facility] UNK - Ambulatory Encounter Michael Waller [facility] UNK - Ambulatory Encounter Michael Torrez [facility] UNK - Ambulatory Encounter Michael Waller [facility] UNK - Ambulatory Encounter Michael Garcia [facility] UNK - Ambulatory Encounter Michael Waller [facility] UNK - Ambulatory Encounter Michael Rutledgeuno [facility] UNK - Ambulatory Encounter Michael Grant [facility] UNK - Ambulatory Encounter Michael Waller [facility] UNK - Ambulatory Encounter Michael Turner [facility] UNK - Ambulatory Encounter Daphney Cleveland [facility] Michael Grant [facility] UNK - Ambulatory Encounter Michael Waller [facility] UNK - Ambulatory Encounter Michael Lemon [facility] UNK - Ambulatory Encounter Michael Turner [facility] UNK - Ambulatory Encounter Michael Waller [facility] UNK - Ambulatory Encounter Michael Waller [facility] UNK - Ambulatory Encounter Michael Turenr [facility] UNK - Ambulatory Encounter Michael Waller [facility] UNK - Ambulatory Encounter Michael Turner [facility] UNK - Ambulatory Encounter Michael Waller [facility] UNK - Ambulatory Encounter [facility] - Ambulatory Encounter Michael Waller [facility] UNK - Ambulatory Encounter Michael Turner [facility] UNK - Ambulatory Encounter Michael Waller [facility] UNK - Ambulatory Encounter Michael Bach [facility] UNK - Ambulatory Encounter Michael Garcia [facility] - Ambulatory Encounter Michael Garcia [facility] - Ambulatory Encounter Michael Grant [facility] UNK - Ambulatory Encounter Michael Waller [facility] UNK - Ambulatory Encounter Michael Cuevas [facility] UNK - Ambulatory Encounter Michael Grant [facility] UNK - Ambulatory Encounter Michael Waller [facility] UNK - Ambulatory Encounter Michael Turner [facility] UNK - Ambulatory Encounter Michael [facility] UNK - Ambulatory Encounter Michael Grant [facility] UNK - Ambulatory Encounter Michael [facility] UNK - Ambulatory Encounter Michael Reese [facility] INSOMNIA DISORDER, RECURRENT - Ambulatory Encounter Michael Parsons [facility] UNK - Ambulatory Encounter ELEANOR Desktop Michael Fallon [facility] UNK - Ambulatory Encounter Michael [facility] - Ambulatory Encounter Michael [facility] - Ambulatory Encounter Michael [facility]K - Ambulatory Encounter Michael [facility] UNK - Ambulatory Encounter Michael Reese Muller [facility] UNK - Ambulatory Encounter Michael Parsons [facility] UNK - Ambulatory Encounter Michael Waller [facility] UNK - Ambulatory Encounter Michael [facility] UNK - Ambulatory Encounter Michael Waller [facility] UNK - [facility] - [facility] Michael [facility] - Ambulatory Encounter Michael Carpioa [facility] ANXIETY DISORDER, OTHER SPECIFIED - Ambulatory Encounter Michael Waller [facility] UNK - Ambulatory Encounter Michael Toney [facility] UNK - Ambulatory Encounter Michael Waller [facility] UNK - Ambulatory Encounter Michael Waller [facility] UNK - Ambulatory Encounter Michael Rockwell [facility] UNK - Ambulatory Encounter [facility]K - Ambulatory Encounter Michael Toney [facility] UNK - Ambulatory Encounter Michael Pina [facility] UNK - Ambulatory Encounter Michael Dunaway [facility] UNK - Ambulatory Encounter Michael Toney [facility] UNK - Ambulatory Encounter Michael Waller Laine Gume [facility] OBESITY - Ambulatory Encounter Michael Waller Laine Gume [facility] ANXIETY DISORDER NOS - Ambulatory Encounter Aamir Toney [facility] UNK VITAL SIGNS No Information Available ALLERGIES Allergy Name Onset Date Reaction Criticality Status SULFA High Criticality active REASON FOR REFERRAL No Information Available RESULTS No Information Available HISTORY OF IMMUNIZATIONS No Information Available HISTORY OF MEDICATION USE Medication Instructions Dates Provider Comments NYSTATIN [id number] UNIT/ML MOUTH/THROAT SUSPENSION Michael Waller PANTOPRAZOLE SODIUM [...] Observation Value Provider smoking status never smoker Micahel Waller smoking status never smoker Michael Waller [...] T Michael Waller smoking status never smoker Michale Waller " social history reviewed E&M reviewed [...] reviewed today Michael Waller Exercise Program Referral T Michael Waller " Weight Management Counseling Provided T Michael Waller " Nutrition intervention T Michael Waller " social history reviewed E&M reviewed today Michael Waller social history reviewed E&M reviewed today Michael Waller social history reviewed E&M reviewed today Michael Waller social history reviewed E&M reviewed today Michael Waller social history reviewed E&M reviewed today Michael Waller drug use, illicit Never Michael Waller " alcohol use Never Michael Waller " smoking status never smoker Michael Waller " family support and and remarried- altogether - 44 years - 2 girls Michael Waller " home/family situation, assessment Currently living with and oldest daughter. Michael Waller FUNCTIONAL STATUS No Information Available MENTAL STATUS Date Observation Value Provider mental status assessment, judgment good Michael Waller " insight (mental status exam) fair Berno [...] range Berno " mood (mental status exam) pleasant, " better " Berno " mental status assessment, speech activity normal flow, normal pace, normal pressure, normal rate, normal tone, normal volume, spontaneous Berno " mental status assessment, motor activity normal posture, using cane Berno " behavior (mental status exam) appropriate, cooperative, good eye contact, responsive Berno " mental appearance (mental status exam) adequate hygiene, appropriate dress, neat, , using cane Berno mental status assessment, judgment good Berno [...] range Berno " mood (mental status exam) pleasant, " bad " Berno " mental status assessment, speech activity normal flow, normal pace, normal pressure, normal rate, normal tone, normal volume, spontaneous Berno " mental status assessment, motor activity normal posture, psychomotor agitated, using walker Berno " behavior (mental status exam) appropriate, cooperative, good eye contact, responsive Berno " mental appearance (mental status exam) adequate hygiene, appropriate dress, neat, Michael Perezo mental status assessment, judgment good [...] assessment, motor activity normal posture, psychomotor agitated Berno " behavior (mental status exam) appropriate, [...] status exam) adequate hygiene, appropriate dress, neat Chriso mood (mental status exam) pleasant Daphneyamanda Kruseford " mental status assessment, judgment good Daphney [place] " insight (mental status exam) fair Daphneyamanda Kruseford " Mental Status Exam: intelligence oriented to person, oriented to place, oriented to time, oriented to reality Daphney [place] " hallucinations none Daphney Cristofer " thought content (mental status exam) (E&M) lucid Daphney [place]eford " mental status assessment, process goal-directed, logical Daphney Cristofer " mental status assessment, sensorium alert, attentive, clear Daphney Cristofer " affect (mental status exam) congruent, normal intensity, normal range Daphney [place] " mental status assessment, speech activity normal flow, normal pace, normal pressure, normal rate, normal tone, normal volume, spontaneous Daphney Cristofer " mental status assessment, motor activity normal posture Daphney [place] " behavior (mental status exam) appropriate, cooperative, good eye contact, polite, responsive Daphney [place] " mental appearance (mental status exam) adequate hygiene, appropriate dress, neat Daphney Cristofer mental status assessment, judgment good Berno " insight (mental status exam) fair Michael Perezo " Mental Status Exam: intelligence oriented to [...] exam) congruent, normal intensity, normal range Michael Waller " mental status assessment, speech activity normal flow, normal pace, normal pressure, normal rate, normal tone, normal volume, spontaneous Michael Waller " mental status assessment, motor activity normal gait, normal posture Michael Waller " behavior (mental status exam) appropriate, cooperative, good eye contact, responsive Michael Waller " mental appearance (mental status exam) adequate hygiene, appropriate dress Michael Waller MEDICAL EQUIPMENT No Information Available FAMILY HISTORY No Information Available INSURANCE PROVIDERS No Information Available ADVANCE DIRECTIVES No Information Available TREATMENT PLAN Date Name Est Patient Exp Problem - 33676 Est Patient Exp Problem - 06096 Est Patient Detailed - 77946 Est Patient Exp Problem - 51094 Est Patient Exp Problem - 09775 Est Patient Exp Problem - 23582 Est Patient Exp Problem - 12388 Est Patient Exp Problem - 66297 Est Patient Exp Problem - 50048 Est Patient Exp Problem - 34648 Est Patient Detailed - 36538 Est Patient Exp Problem - 12818 Est Patient Exp Problem - 95529 Est Patient Exp Problem - 57704 Est Patient Detailed - 05678 Est Patient Exp Problem - 24818 Est Patient Exp Problem - 83362 Est Patient Exp Problem - 15380 Est Patient Exp Problem - 04684 Est Patient Exp Problem - 11283 Est Patient Exp Problem - 66702 Est Patient Exp Problem - 96372 Est Patient Exp Problem - 02146 Est Patient Exp Problem - 23646 Est Patient Exp Problem - 09658 Est Patient Exp Problem - 98498 Est Patient Exp Problem - 67608 Diagnostic evaluation with medical - 47058 HISTORY OF PROCEDURES Procedure Date Procedure Name Provider Procedure Notes Status Diagnostic evaluation with medical - 57788 Michael Waller completed GOALS No Information Available HEALTH CONCERNS No Information Available
[2019-09-23] MEDS ORDERED: SODIUM CHLORIDE 0.9% 500ML 500 ML IV STA (13:42)
[2019-09-23] MEDS ORDERED: ONDANSETRON HCL INJ 2MG/ML 2ML 2 MG/ML VIAL IV NR (13:45)
[2019-09-23] MEDS ORDERED: LIDOCAINE VISC 2% SOLN 15 ML UDC PO NR (13:45)
[2019-09-23] MEDS ORDERED: PANTOPRAZOLE 40 MG 10ML VIAL IV ONE (14:00)
[2019-09-23] MEDS ORDERED: MAGNESIUM/ALUMINUM/SIMETHICONE 30 ML UDC PO NR (14:00)
[2019-09-23 14:45] LABS: BASOPHILS # (AUTO) 0.1 (0.0-0.1); BASOPHILS % 0.7 % (0.0-1.0); EOSINOPHILS # (AUTO) 0.2 (0.0-0.4); EOSINOPHILS % 2.2 % (0.0-6.0); HEMATOCRIT 36.4 % (34.2-44.1); HEMOGLOBIN 11.3 g/dL (12.0-16.0); LYMPHOCYTES # (AUTO) 1.9 (1.0-3.2); LYMPHOCYTES % 26.1 % (18.0-39.1); MEAN CORPUSCULAR HEMOGLOBIN 26.3 pg (28-32); MEAN CORPUSCULAR VOLUME 84.8 fL (81-99); MONOCYTES # (AUTO) 0.6 (0.2-0.8); MONOCYTES % 7.9 % (4.4-11.3); NEUTROPHILS # (AUTO) 4.6 (2.1-6.9); NEUTROPHILS % 62.3 % (38.7-80.0); PLATELET COUNT 325 x10e3/uL (140-360); RED BLOOD COUNT 4.29 x10e6/uL (3.6-5.1); RED CELL DISTRIBUTION WIDTH 16.2 % (11.7-14.4)
[2019-09-23] MEDS ORDERED: BELLADONNA ALK/PHENOBARBITAL 5 ML UDC PO SCH (15:00)
[2019-09-23 15:02] LABS: INR 0.93
[2019-09-23 15:03] LABS: PARTIAL THROMBOPLASTIN TIME 28.8 seconds (23.8-35.5)
[2019-09-23 15:04] LABS: BILIRUBIN,URINE NEGATIVE (NEGATIVE); CLARITY,URINE CLEAR (CLEAR); COLOR,URINE YELLOW (YELLOW); KETONES,URINE NEGATIVE (NEGATIVE); LEUKOCYTE ESTERASE ,URINE NEGATIVE (NEGATIVE); NITRITE,URINE NEGATIVE (NEGATIVE); PROTEIN,URINE DIPSTICK NEGATIVE (NEGATIVE); URINE UROBILINOGEN 0.2 mg/dL (0.2 - 1)
[2019-09-23 15:11] LABS: ALANINE AMINOTRANSFERASE 15 IU/L (0-55); ALBUMIN 3.5 g/dL (3.5-5.0); ALBUMIN/GLOBULIN RATIO 1.2 (0.8-2.0); ALKALINE PHOSPHATASE 93 IU/L (40-150); AMYLASE 27 U/L (25-125); ANION GAP 14.5 mmol/L (8-16); BLOOD UREA NITROGEN 15 mg/dL (7-26); BUN/CREATININE RATIO 22 (6-25); CALCIUM 8.6 mg/dL (8.4-10.2); CARBON DIOXIDE 24 mmol/L (22-29); CHLORIDE 103 mmol/L (98-107); CREATINE KINASE 125 IU/L (29-168); CREATININE, SERUM 0.69 mg/dL (0.57-1.11); EST GLOMERULAR FILTRATION RATE > 60 ML/MIN (60-); GLUCOSE 119 mg/dL (74-118); LIPASE 9 U/L (8-78); POTASSIUM 3.5 mmol/L (3.5-5.1); SODIUM 138 mmol/L (136-145)
[2019-09-23 15:22] LABS: BACTERIA,URINE FEW /HPF; EPITHELIAL CELLS,URINE FEW /LPF; MUCUS,URINE FEW (RARE)
[2019-09-23] MEDS ORDERED: ZOFRAN8 MG PO (17:02)
[2019-09-23] MEDS ORDERED: LEVSIN0.125 MG PO (17:02)
--- NOTE | 2019-09-23 17:04 | Diagnostic Imaging Report ---
EXAMINATION: CHEST SINGLE (PORTABLE) INDICATION: Pain. COMPARISON: Chest radiograph 07/01/2010. FINDINGS: TUBES and LINES: None. LUNGS: Lungs are well inflated. Mild bibasilar subsegmental atelectasis. PLEURA: No pleural effusion or pneumothorax. HEART AND MEDIASTINUM: The cardiomediastinal silhouette is unremarkable. There are atherosclerotic calcifications within the aorta. BONES AND SOFT TISSUES: No acute osseous abnormality. UPPER ABDOMEN: No free air under the diaphragm. IMPRESSION: Bibasilar subsegmental atelectasis. Signed by: Dr. Cesar Gu M.D. on 09/23/2019 5:00 PM
--- NOTE | 2019-09-23 17:31 | Diagnostic Imaging Report ---
EXAM: CT Abdomen and Pelvis WITH contrast INDICATION: Abdominal pain. COMPARISON: 07/20/2019. TECHNIQUE: Abdomen and pelvis were scanned utilizing a multidetector helical scanner from the lung base to the pubic symphysis after administration of IV contrast. Coronal and sagittal reformations were obtained. Routine protocol was performed. Scan was performed when during portal venous phase. IV CONTRAST: 100 cc Isovue-300 ORAL CONTRAST: Water RADIATION DOSE: Total DLP: 443.38 mGy*cm Estimated effective dose: (DLP x 0.015 x size factor) mSv COMPLICATIONS: None FINDINGS: LINES and TUBES: None. LOWER THORAX: Unremarkable HEPATOBILIARY: No focal hepatic lesions. No biliary ductal dilation. GALLBLADDER: No radio-opaque stones or sludge. No wall thickening. SPLEEN: No splenomegaly. PANCREAS: No focal masses or ductal dilatation. ADRENALS: No adrenal nodules KIDNEYS/URETERS: Kidneys enhance symmetrically. No hydronephrosis. 2.5 cm cyst exophytic of the lateral interpolar region of the right kidney. 5 mm low-attenuation lesion in the cortex of the anterolateral interpolar region of the left kidney, most likely a small cyst. GI TRACT: No abnormal distention, wall thickening, or evidence of bowel obstruction. There are diverticula within the colon without evidence of diverticulitis. Appendix is normal. Small duodenal diverticulum. 8 mm oval calcification abutting small bowel loop in the right upper quadrant on image 37. PELVIC ORGANS/BLADDER: The uterus is absent. LYMPH NODES: No lymphadenopathy. VESSELS: There is mild atherosclerotic disease in the aorta and major arterial branches. 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 BONES: Bipolar right hip prosthesis appears in adequate position, however, a generous artifact in the pelvis. Degenerative changes of the imaged thoracolumbar spine. SOFT TISSUES: Small fat-containing umbilical hernia. IMPRESSION: 1. 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 This is a new finding since the prior examination. Otherwise no acute abnormality. 2. Colonic diverticulosis without acute diverticulitis. Signed by: Jennifer JonesD. on 09/23/2019 5:27 PM
[2019-09-23] MEDS ORDERED: SODIUM CHLORIDE 0.9% 50ML 50 ML ONE (17:36)
[2019-09-23] MEDS ORDERED: IOPAMIDOL 370 MG/ML 200 ML INFUS..BTL INJ ONE (17:36)
== END 2019-09-23 18:48 | disposition home or self-care (01) ==
LOC: ER 13:33
DX: R10.13 Epigastric pain (principal); R10.11 Right upper quadrant pain; R11.2 Nausea with vomiting, unspecified; E78.5 Hyperlipidemia, unspecified; K21.9 Gastro-esophageal reflux disease without esophagitis; F41.9 Anxiety disorder, unspecified; F32.9 Major depressive disorder, single episode, unspecified; Z96.641 Presence of right artificial hip joint
CPT/HCPCS: 36415; 71045; 74177; 80053; 81001; 82150; 82550; 82553; 83690; 84484; 85025; 85610; 85730; 87086; 93005; 99284; C9113; J2405; J7040; Q9967

== ENCOUNTER 2022-08-12 07:22 | Emergency (ER) | payer MEDICARE ==
[~2022-08-12] VITALS: Ht 160 cm; Wt 81.6 kg
[~2022-08-12 07:22] MED LIST changes: +LEVSIN0.125 MG PO; +ZOFRAN8 MG PO
[2022-08-12] MEDS ORDERED: FLONASE ALLERG9.9 ML INH (07:47)
[2022-08-12] MEDS ORDERED: CEFDINIR300 MG PO (07:47)
== END 2022-08-12 07:55 | disposition home or self-care (01) ==
LOC: ER 07:30
DX: H66.93 Otitis media, unspecified, bilateral (principal); R09.81 Nasal congestion
CPT/HCPCS: 99282

== ENCOUNTER 2023-11-23 17:59 | Emergency (ER) | payer MEDICARE ==
[~2023-11-23] VITALS: Ht 160 cm; Wt 81.6 kg
[~2023-11-23 17:59] MED LIST changes: +CEFDINIR300 MG PO; +FLONASE ALLERG9.9 ML INH
[2023-11-23 19:50] LABS: BASOPHILS # (AUTO) 0.1 (0.0-0.1); BASOPHILS % 0.9 % (0.0-1.0); EOSINOPHILS # (AUTO) 0.2 (0.0-0.4); EOSINOPHILS % 2.8 % (0.0-6.0); HEMOGLOBIN 13.9 g/dL (12.0-16.0); LYMPHOCYTES # (AUTO) 1.8 (1.0-3.2); LYMPHOCYTES % 27.2 % (18.0-39.1); MEAN CORPUSCULAR HEMOGLOBIN 27.9 pg (28-32); MEAN CORPUSCULAR HGB CONC 30.2 g/dL (31-35); MEAN CORPUSCULAR VOLUME 92.4 fL (81-99); MONOCYTES # (AUTO) 0.6 (0.2-0.8); MONOCYTES % 8.5 % (4.4-11.3); NEUTROPHILS # (AUTO) 4.1 (2.1-6.9); NEUTROPHILS % 60.3 % (38.7-80.0); PLATELET COUNT 228 x10e3/uL (140-360); RED BLOOD COUNT 4.98 x10e6/uL (3.6-5.1); RED CELL DISTRIBUTION WIDTH 14.2 % (11.7-14.4); WHITE BLOOD COUNT 6.73 x10e3/uL (4.8-10.8)
[2023-11-23 20:00] LABS: INR 0.94; PARTIAL THROMBOPLASTIN TIME 25.3 seconds (23.8-35.5); PROTHROMBIN TIME 12.8 seconds (11.9-14.5)
[2023-11-23 20:07] LABS: ALBUMIN 3.5 g/dL (3.5-5.0); ALBUMIN/GLOBULIN RATIO 1.1 (0.8-2.0); ANION GAP 14.3 mmol/L (8-16); BILIRUBIN,TOTAL 0.2 mg/dL (0.2-1.2); CREATININE, SERUM 0.69 mg/dL (0.57-1.11); POTASSIUM 4.3 mmol/L (3.5-5.1); TOTAL PROTEIN 6.7 g/dL (6.5-8.1)
[2023-11-23 21:16] VITALS: BP 137/84; PULSE 68; RESP 18; TEMP 98.3; O2SAT 100
== END 2023-11-23 21:18 | disposition home or self-care (01) ==
LOC: ER 19:05
DX: M79.662 Pain in left lower leg (principal); I80.02 Phlebitis and thrombophlebitis of superficial vessels of left lower extremity; E11.40 Type 2 diabetes mellitus with diabetic neuropathy, unspecified; I10 Essential (primary) hypertension; E78.5 Hyperlipidemia, unspecified; F41.9 Anxiety disorder, unspecified; K21.9 Gastro-esophageal reflux disease without esophagitis
CPT/HCPCS: 36415; 80053; 85025; 85610; 85730; 99284

== ENCOUNTER 2024-12-19 11:11 | Emergency (ER) | payer MEDICARE ==
[~2024-12-19] VITALS: Ht 160 cm; Wt 81.6 kg
[~2024-12-19 11:11] MED LIST changes: +BENTYL10 MG/1 ML IV; +DICYCLOMINE HCL20 MG PO; +ONDANSETRON ODT4 MG PO
[2024-12-19 12:20] VITALS: PULSE 79; RESP 16; TEMP 98.4
[2024-12-19 13:38] LABS: COLOR,URINE YELLOW (YELLOW)
[2024-12-19 13:39] LABS: BILIRUBIN,URINE SMALL (NEGATIVE); CLARITY,URINE SL CLOUDY (CLEAR); GLUCOSE, URINE 500 (NEGATIVE); KETONES,URINE TRACE (NEGATIVE); LEUKOCYTE ESTERASE ,URINE SMALL (NEGATIVE); NITRITE,URINE NEGATIVE (NEGATIVE); PH,URINE 5.5 (5 - 7); PROTEIN,URINE DIPSTICK 1+ (NEGATIVE); URINE UROBILINOGEN 0.2 mg/dL (0.2 - 1)
[2024-12-19 14:07] LABS: RBC,URINE 0-5 /HPF (0-5)
[2024-12-19 14:08] LABS: BACTERIA,URINE RARE /HPF; EPITHELIAL CELLS,URINE FEW /LPF
[2024-12-19] MEDS ORDERED: CEPHALEXIN500 MG PO (14:23)
[2024-12-19 15:26] VITALS: BP 146/89; PULSE 66; RESP 16; O2SAT 99
== END 2024-12-19 15:20 | disposition home or self-care (01) ==
LOC: ER 12:35
DX: R30.0 Dysuria (principal); N39.0 Urinary tract infection, site not specified; R31.9 Hematuria, unspecified; R10.12 Left upper quadrant pain; I10 Essential (primary) hypertension; E11.40 Type 2 diabetes mellitus with diabetic neuropathy, unspecified; E78.5 Hyperlipidemia, unspecified; K21.9 Gastro-esophageal reflux disease without esophagitis; F41.9 Anxiety disorder, unspecified; F32.A Depression, unspecified
CPT/HCPCS: 81001; 87086; 99283